=== PATIENT | male | born 1935 | race Caucasian/White ===

== ENCOUNTER → 2016-04-05 | Outpatient (CLI) | payer BC ==
[~2016-04-05] MED LIST: ACET-1311 PO; AGG PO; ASPI325T39 PO; BIMA0.01 OPB; CALC-279 PO; DOCU1TAB6 PO; FERR325T18 PO; FRRG PO; MIRT15TA2 PO; MULTTAB58 PO; PANT40TA PO; POLY335019 PO; TRAM-10 PO
--- NOTE | 2016-04-05 08:14 | DIAGNOSTIC IMAGING REPORT ---
DOUBLE CONTRAST BARIUM ESOPHAGRAM CLINICAL HISTORY: Cough. COMPARISON STUDY: Video swallow study dated 10/07/2015. TECHNIQUE: A standard air contrast barium esophagram is performed. Multiple spot images of the esophagus are acquired both upright and prone. FINDINGS: The patient swallowed barium without difficulty. Barium pill assessment was deferred. A large Zenker's diverticulum is identified. The mucosal pattern is normal. There is no evidence of intrinsic or extrinsic mass lesion. Trace aspiration was seen. There is moderate esophageal dysmotility, greatest in the mid to distal third. The gastroesophageal junction distended normally. No gastroesophageal reflux could be elicited by having the patient perform the Valsalva maneuver. Fluoroscopy time: 0.9 minutes. Fluoroscopic images: 23 IMPRESSION: 1. Esophageal dysmotility. 2. A large Zenker's diverticulum is noted. 3. Trace aspiration was identified. Electronically signed by: Jagdeep Marlow M.D. 04/05/2016 8:12 AM Dictated Date/Time: 04/05/2016 8:09 AM
== END | disposition home or self-care (01) ==
LOC: C.RAD 07:11
DX: R05 Cough (principal); K22.4 Dyskinesia of esophagus; K22.5 Diverticulum of esophagus, acquired

== ENCOUNTER → 2016-06-19 | Outpatient (CLI) | payer BC ==
[2016-06-19 15:49] LABS: BASO % 0.3 %; BASO ABS # 0.02 K/uL (0-0.2); COMPLETE YES; EOS % 2.1 %; HEMATOCRIT 45.2 % (42-52); IG% 0.3 %; LYMPH % 16.4 %; LYMPH ABS # 1.02 K/uL (1.2-3.4); MEAN CELL VOLUME 90.6 fL (80-100); MEAN CORPUSCULAR HEMOGLOBIN 30.3 pg (25-34); MEAN CORPUSCULAR HGB CONC 33.4 g/dl (32-36); MEAN PLATELET VOLUME 10.5 fL (7.4-10.4); MONO % 12.4 %; NEUT % 68.5 %; PLATELET COUNT 143 K/uL (130-400); RED BLOOD COUNT 4.99 M/uL (4.7-6.1); WHITE BLOOD COUNT 6.23 K/uL (4.8-10.8)
[2016-06-19 15:59] LABS: ALT/SGPT 22 U/L (12-78); AST/SGOT 11 U/L (15-37); BLOOD UREA NITROGEN 20 mg/dl (7-18); BUN/CREATININE RATIO 18.3 (10-20); CALCIUM 8.7 mg/dl (8.5-10.1); CARBON DIOXIDE 26 mmol/L (21-32); CHLORIDE 111 mmol/L (98-107); GLUCOSE 90 mg/dl (70-99); POTASSIUM 4.4 mmol/L (3.5-5.1); SODIUM 143 mmol/L (136-145)
[2016-06-19 16:00] LABS: BLOOD UREA NITROGEN 21 mg/dl (7-18)
[2016-06-19 16:10] LABS: ALB/GLOB RATIO 1.4 (0.9-2); ALKALINE PHOSPHATASE 98 U/L (45-117)
== END | disposition home or self-care (01) ==
LOC: C.LAB1850 13:56
PROVIDERS: ATTEND Psychiatry & Neurology Neurology
DX: R26.0 Ataxic gait (principal); R41.3 Other amnesia; I67.82 Cerebral ischemia; E53.8 Deficiency of other specified B group vitamins

== ENCOUNTER 2016-06-20 15:45 | Inpatient (IN) | payer BC, OTHER ==
[~2016-06-20] VITALS: Ht 180.3 cm; Wt 101.0 kg
[~2016-06-20 15:45] MED LIST changes: -ACET-1311 PO; -ASPI325T39 PO; -FERR325T18 PO; -FRRG PO; -PANT40TA PO; -TRAM-10 PO
[2016-06-20 16:20] LABS: BASO % 0.3 %; BASO ABS # 0.02 K/uL (0-0.2); COMPLETE YES; EOS % 2.2 %; HEMATOCRIT 41.8 % (42-52); IG% 0.5 %; LYMPH % 14.6 %; LYMPH ABS # 0.91 K/uL (1.2-3.4); MEAN CELL VOLUME 92.5 fL (80-100); MEAN CORPUSCULAR HEMOGLOBIN 31.6 pg (25-34); MEAN CORPUSCULAR HGB CONC 34.2 g/dl (32-36); MEAN PLATELET VOLUME 10.2 fL (7.4-10.4); MONO % 10.3 %; NEUT % 72.1 %; PLATELET COUNT 127 K/uL (130-400); RED BLOOD COUNT 4.52 M/uL (4.7-6.1); WHITE BLOOD COUNT 6.24 K/uL (4.8-10.8)
[2016-06-20 16:30] LABS: PARTIAL THROMBOPLASTIN RATIO 1.1
--- NOTE | 2016-06-20 16:32 | DIAGNOSTIC IMAGING REPORT ---
CT SCAN OF THE BRAIN WITHOUT IV CONTRAST CLINICAL HISTORY: Fall. COMPARISON STUDY: CT of the brain dated 10/04/2015. TECHNIQUE: Unenhanced axial CT scan of the brain is performed from the vertex to the skull base. CT DOSE: 691.05 mGy.cm FINDINGS: Brain parenchyma: There are age-related involutional changes noting mild subcortical and periventricular microangiopathic change. There is no hemorrhage, mass effect, or evidence of acute territorial ischemia by CT criteria. A small arachnoid cyst is again seen in the left anterior temporal pole measuring up to 2.8 cm. Lundberg-white matter is preserved. No extra-axial fluid collection is seen. Ventricles, sulci, cisterns: Prominent secondary to involutional change. Megacisterna magna is incidentally noted. Intracranial vasculature: There is atherosclerotic calcification of the cavernous carotid and vertebral arteries. Calvarium: The skeletal structures are osteopenic. There is no depressed calvarial fracture. Sinuses and mastoids: Findings suggest previous paranasal sinus surgery. Trace mucosal thickening is seen within the right maxillary antrum and the ethmoid cavities. The remaining visualized paranasal sinuses are clear. The mastoid air cells are well pneumatized. Orbits: The bony orbits are grossly intact. IMPRESSION: There is no hemorrhage, mass effect, or evidence of acute territorial ischemia by CT criteria. Electronically signed by: Jagdeep Marlow M.D. 06/20/2016 4:31 PM Dictated Date/Time: 06/20/2016 4:24 PM
[2016-06-20 16:36] LABS: BLOOD UREA NITROGEN 28 mg/dl (7-18); BUN/CREATININE RATIO 21.6 (10-20); CALCIUM 8.5 mg/dl (8.5-10.1); CARBON DIOXIDE 27 mmol/L (21-32); CHLORIDE 111 mmol/L (98-107); GLUCOSE 105 mg/dl (70-99); POTASSIUM 4.3 mmol/L (3.5-5.1); SODIUM 144 mmol/L (136-145)
--- NOTE | 2016-06-20 16:50 | DIAGNOSTIC IMAGING REPORT ---
SINGLE VIEW PELVIS; 2 VIEWS RIGHT HIP; 2 VIEWS RIGHT FEMUR CLINICAL HISTORY: Fall with right hip pain. FINDINGS: An AP view of the pelvis with AP and frog-leg views of the right hip as well as AP and lateral views of the right femur are correlated with pelvic radiograph dated 07/24/2007. The skeletal structures are osteopenic. No fracture is identified in the bony pelvis or the visualized left hip. A right hip arthroplasty is in near-anatomic alignment. There is a spiral fracture through the proximal shaft of the right femur around the arthroplasty stem. There is approximately 6 mm cortical offset at the distal margin of the fracture. The distal femoral shaft is intact. The right knee is grossly maintained noting arthritic change. Mild soft tissue edema is present in the upper thigh. Chronic heterotopic bone formation is noted around the proximal aspect of the arthroplasty. Sclerotic change is seen in the sacroiliac joints. Lumbosacral spondylosis is partially imaged. There is a nonobstructed abdominal bowel gas pattern noting significant colonic fecal retention. IMPRESSION: 1. There is a minimally distracted spiral fracture through the proximal shaft of the right femur around the stem of the right hip arthroplasty. 2. No additional fracture is seen. The bony pelvis appears intact, as does the distal femur. Electronically signed by: Jagdeep Marlow M.D. 06/20/2016 4:49 PM Dictated Date/Time: 06/20/2016 4:45 PM
--- NOTE | 2016-06-20 17:03 | DIAGNOSTIC IMAGING REPORT ---
SINGLE VIEW CHEST CLINICAL HISTORY: Fall. Right femoral fracture. FINDINGS: 2 AP semierect chest radiographs are compared to study dated 02/04/2016 and correlated with chest CT dated 12/19/2012. The examination is degraded by patient rotation. The heart is enlarged and there is atherosclerotic calcification of the thoracic aorta. The pulmonary vasculature is noncongested. Emphysema and chronic interstitial thickening are similar to previous. A calcified granuloma is noted at the left lung base. Linear atelectasis versus scarring is present in left lower lung. No airspace consolidation, large pleural effusion, or pneumothorax is seen. The skeletal structures are osteopenic. Degenerative change is noted in the shoulders and thoracic spine. There are healed bilateral rib fractures. IMPRESSION: Cardiomegaly and emphysema with no acute cardiopulmonary abnormality. Electronically signed by: Jagdeep Marlow M.D. 06/20/2016 5:02 PM Dictated Date/Time: 06/20/2016 5:00 PM
[2016-06-20] MEDS ORDERED: MoRPHine SULFATE 4 MG/ML 1 ML CARP\\VIAL IV STA (17:36)
[2016-06-20] MEDS ORDERED: ONDANSETRON INJ 2 MG/ML 2 ML VIAL IV STA (17:36)
--- NOTE | 2016-06-20 17:42 | EMERGENCY ROOM VISIT NOTE ---
History Report prepared by Mat: Elham Deluca Under the Supervision of: Dr. Hood Fields M.D. First contact with patient: 15:53 Chief Complaint: FALL Stated Complaint: FALL History of Present Illness The patient is a 80 year old male who presents to the Emergency Room with complaints of persistent right hip pain after falling today [employer]. His friend who witnessed the fall states that the patient was reaching up to put away his towel when he slipped on water and fell. He denies losing consciousness. He has had a right hip replacement in the past. He is having trouble lifting his right leg because of the pain with movement. He denies any vomiting, chest pain, neck pain, back pain, or SOB. He denies being dizzy before falling. He has had a TIA in the past. He is currently on Aggrenox. Source of History: patient Onset: CONTRACTING EXECUTIVE Position: other (right hip) Symptom Intensity: moderate Quality: sharp Timing: other (persistent) Modifying Factors (Worsening): movement Associated Symptoms: No LOC, No SOB, No back pain, No chest pain, No neck pain, No vomiting Note: Pt denies being dizzy. Review of Systems See HPI for pertinent positives & negatives. A total of 10 systems reviewed and were otherwise negative. 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 (4) Hypertension (5) Pneumonia (6) TRANS CEREB ISCHEMIA NOS Surgical Problems: (1) H/O sinus surgery Family History Diabetes mellitus FH: cancer FH: heart disease Social History Smoking Status: Never Smoker Alcohol Use: occasionally Drug Use: none Marital Status: Housing Status: lives with family Occupation Status: employed Current/Historical Medications Scheduled Bimatoprost (Lumigan), 1 DROP OPB HS Calcium Citrate-Vitamin D (Calcium Citrate + D), 1 TAB PO QPM Dipyridamole/Aspirin (Aggrenox 25-200 mg), 1 CAP PO BID Multiple Vitamin (Multivitamin), 1 TAB PO QAM Allergies Coded Allergies: No Known Allergies (Verified , 06/20/16) Physical Exam Vital Signs Date Time Temp Pulse Resp B/P Pulse Ox O2 Delivery O2 Flow Rate FiO2 06/20/16 17:37 56 18 154/86 98 Room Air 06/20/16 16:07 59 06/20/16 15:50 36.7 56 18 147/87 98 Room Air Physical Exam Constitutional: Vital signs reviewed. Eyes: Pupils are equal round reactive to light. Conjunctiva are noninjected. ENT: Pharynx is clear without erythema or exudate. Mucous membranes are moist. Neck supple without meningeal signs. No midline tenderness to the cervical spine. Respiratory: Clear to auscultation bilaterally. Breath sounds are equal bilaterally. Cardiovascular: Regular rate and rhythm. No rubs or gallops. GI: Soft, nondistended and nontender. Bowel sounds are present. Musculoskeletal: No peripheral edema. Tenderness to the right hip without shortening. Distal pulses intact. Integumentary: No cyanosis. Small hematoma to the right occiput. Neurological: The patient is awake and alert. No focal deficits. Psychiatric: Normal affect. Medical Decision & Procedures ER Provider Diagnostic Interpretation: X-ray results as stated below per interpretation by me and the radiologist. Radiology results as stated below per my review and the radiologist's interpretation: SINGLE VIEW PELVIS; 2 VIEWS RIGHT HIP; 2 VIEWS RIGHT FEMUR CLINICAL HISTORY: Fall with right hip pain. FINDINGS: An AP view of the pelvis with AP and frog-leg views of the right hip as well as AP and lateral views of the right femur are correlated with pelvic radiograph dated 07/24/2007. The skeletal structures are osteopenic. No fracture is identified in the bony pelvis or the visualized left hip. A right hip arthroplasty is in near-anatomic alignment. There is a spiral fracture through the proximal shaft of the right femur around the arthroplasty stem. There is approximately 6 mm cortical offset at the distal margin of the fracture. The distal femoral shaft is intact. The right knee is grossly maintained noting arthritic change. Mild soft tissue edema is present in the upper thigh. Chronic heterotopic bone formation is noted around the proximal aspect of the arthroplasty. Sclerotic change is seen in the sacroiliac joints. Lumbosacral spondylosis is partially imaged. There is a nonobstructed abdominal bowel gas pattern noting significant colonic fecal retention. IMPRESSION: 1. There is a minimally distracted spiral fracture through the proximal shaft of the right femur around the stem of the right hip arthroplasty. 2. No additional fracture is seen. The bony pelvis appears intact, as does the distal femur. Electronically signed by: Jagdeep Marlow M.D. 06/20/2016 4:49 PM Dictated Date/Time: 06/20/2016 4:45 PM SINGLE VIEW CHEST CLINICAL HISTORY: Fall. Right femoral fracture. FINDINGS: 2 AP semierect chest radiographs are compared to study dated 02/04/2016 and correlated with chest CT dated 12/19/2012. The examination is degraded by patient rotation. The heart is enlarged and there is atherosclerotic calcification of the thoracic aorta. The pulmonary vasculature is noncongested. Emphysema and chronic interstitial thickening are similar to previous. A calcified granuloma is noted at the left lung base. Linear atelectasis versus scarring is present in left lower lung. No airspace consolidation, large pleural effusion, or pneumothorax is seen. The skeletal structures are osteopenic. Degenerative change is noted in the shoulders and thoracic spine. There are healed bilateral rib fractures. IMPRESSION: Cardiomegaly and emphysema with no acute cardiopulmonary abnormality. Electronically signed by: Jagdeep Marlow M.D. 06/20/2016 5:02 PM Dictated Date/Time: 06/20/2016 5:00 PM SINGLE VIEW PELVIS; 2 VIEWS RIGHT HIP; 2 VIEWS RIGHT FEMUR CLINICAL HISTORY: Fall with right hip pain. FINDINGS: An AP view of the pelvis with AP and frog-leg views of the right hip as well as AP and lateral views of the right femur are correlated with pelvic radiograph dated 07/24/2007. The skeletal structures are osteopenic. No fracture is identified in the bony pelvis or the visualized left hip. A right hip arthroplasty is in near-anatomic alignment. There is a spiral fracture through the proximal shaft of the right femur around the arthroplasty stem. There is approximately 6 mm cortical offset at the distal margin of the fracture. The distal femoral shaft is intact. The right knee is grossly maintained noting arthritic change. Mild soft tissue edema is present in the upper thigh. Chronic heterotopic bone formation is noted around the proximal aspect of the arthroplasty. Sclerotic change is seen in the sacroiliac joints. Lumbosacral spondylosis is partially imaged. There is a nonobstructed abdominal bowel gas pattern noting significant colonic fecal retention. IMPRESSION: 1. There is a minimally distracted spiral fracture through the proximal shaft of the right femur around the stem of the right hip arthroplasty. 2. No additional fracture is seen. The bony pelvis appears intact, as does the distal femur. Electronically signed by: Jagdeep Marlow M.D. 06/20/2016 4:49 PM Dictated Date/Time: 06/20/2016 4:[address] SCAN OF THE BRAIN WITHOUT IV CONTRAST CLINICAL HISTORY: Fall. COMPARISON STUDY: CT of the brain dated 10/04/2015. TECHNIQUE: Unenhanced axial CT scan of the brain is performed from the vertex to the skull base. CT DOSE: 691.05 mGy.cm FINDINGS: Brain parenchyma: There are age-related involutional changes noting mild subcortical and periventricular microangiopathic change. There is no hemorrhage, mass effect, or evidence of acute territorial ischemia by CT criteria. A small arachnoid cyst is again seen in the left anterior temporal pole measuring up to 2.8 cm. Lundberg-white matter is preserved. No extra-axial fluid collection is seen. Ventricles, sulci, cisterns: Prominent secondary to involutional change. Megacisterna magna is incidentally noted. Intracranial vasculature: There is atherosclerotic calcification of the cavernous carotid and vertebral arteries. Calvarium: The skeletal structures are osteopenic. There is no depressed calvarial fracture. Sinuses and mastoids: Findings suggest previous paranasal sinus surgery. Trace mucosal thickening is seen within the right maxillary antrum and the ethmoid cavities. The remaining visualized paranasal sinuses are clear. The mastoid air cells are well pneumatized. Orbits: The bony orbits are grossly intact. IMPRESSION: There is no hemorrhage, mass effect, or evidence of acute territorial ischemia by CT criteria. Electronically signed by: Jagdeep Marlow M.D. 06/20/2016 4:31 PM Dictated Date/Time: 06/20/2016 4:24 PM Laboratory Results 06/20/16 16:10 Red Blood Count 4.52, Mean Corpuscular Volume 92.5, Mean Corpuscular Hemoglobin 31.6, Mean Corpuscular Hemoglobin Concent 34.2, Mean Platelet Volume 10.2, Neutrophils (%) (Auto) 72.1, Lymphocytes (%) (Auto) 14.6, Monocytes (%) (Auto) 10.3, Eosinophils (%) (Auto) 2.2, Basophils (%) (Auto) 0.3, Neutrophils # (Auto ) 4.50, Lymphocytes # (Auto) 0.91, Monocytes # (Auto) 0.64, Eosinophils # (Auto ) 0.14, Basophils # (Auto) 0.02 06/20/16 16:10 Test 06/20/16 16:10 White Blood Count 6.24 K/uL (4.8-10.8) Red Blood Count 4.52 M/uL (4.7-6.1) Hemoglobin 14.3 g/dL (14.0-18.0) Hematocrit 41.8 % (42-52) Mean Corpuscular Volume 92.5 fL (80-100) Mean Corpuscular Hemoglobin 31.6 pg (25-34) Mean Corpuscular Hemoglobin Concent 34.2 g/dl (32-36) Platelet Count 127 K/uL (130-400) Mean Platelet Volume 10.2 fL (7.4-10.4) Neutrophils (%) (Auto) 72.1 % Lymphocytes (%) (Auto) 14.6 % Monocytes (%) (Auto) 10.3 % Eosinophils (%) (Auto) 2.2 % Basophils (%) (Auto) 0.3 % Neutrophils # (Auto) 4.50 K/uL (1.4-6.5) Lymphocytes # (Auto) 0.91 K/uL (1.2-3.4) Monocytes # (Auto) 0.64 K/uL (0.11-0.59) Eosinophils # (Auto) 0.14 K/uL (0-0.5) Basophils # (Auto) 0.02 K/uL (0-0.2) RDW Standard Deviation 45.8 fL (36.4-46.3) RDW Coefficient of Variation 13.5 % (11.5-14.5) Immature Granulocyte % (Auto) 0.5 % Immature Granulocyte # (Auto) 0.03 K/uL (0.00-0.02) Prothrombin Time 11.0 SECONDS (9.0-12.0) Prothromb Time International Ratio 1.0 (0.9-1.1) Activated Partial Thromboplast Time 28.7 SECONDS (21.0-31.0) Partial Thromboplastin Ratio 1.1 Anion Gap 6.0 mmol/L (3-11) Est Creatinine Clear Calc Drug Dose 53.9 ml/min Estimated GFR () 59.3 Estimated GFR (Non- 51.2 BUN/Creatinine Ratio 21.6 (10-20) Calcium Level 8.5 mg/dl (8.5-10.1) Troponin I < 0.015 ng/ml (0-0.045) Laboratory results as reviewed by me. ECG Indication: other (fall) Rate (beats per minute): 56 Rhythm: sinus bradycardia Findings: no acute ischemic change, no ectopy Comparison ECG Date: 08-Oct-2015 Change: no significant change ED Course 1555: The patient was evaluated in room B7. A complete history and physical exam was performed. 1708: I reevaluated the patient. I updated him on the results. He continues to decline pain medications. His friend who witnessed the fall has come and provided some more information regarding the fall. He states that the patient was reaching up to put away his towel when he slipped on water and fell. He reports that Dr. Topete is his orthopedic doctor. 1717: I discussed the patient's case with Dr. Topete, Orthopedics. He requested that the medical team hospitalize the patient and he will consult. 1720: I reevaluated the patient. I discussed the results and treatment plan with him. He verbalized understanding and agreement. The patient will be evaluated for further management. 1732: I discussed the patient's case with Dr. Bass, [facility] [place]. He will be evaluated for further management. Medical Decision This is an 80-year-old male who presents status post fall with head injury and hip pain. Differential diagnosis includes contusion, concussion, intracranial hemorrhage, skull fracture, hip fracture, pelvic fracture. I did perform a limited focused review of portions of the patient's old chart on the electronic medical record. The patient had blood work yesterday which was unremarkable. I did evaluate the patient as noted above. The patient presents with a hip injury and head injury after a fall. IV access was established. The patient was placed on a continuous alarm security or surveillance monitor. I did order and personally review the patient's 12-lead EKG and x-rays as described above. He does have a spiral fracture of the proximal femur near the prosthesis. He is distally neurovascularly intact. I did order and review the patient's blood work as noted in the electronic medical record. I did order a CT of the head. I did review the images myself as well as the radiology report as described above. There is no evidence of intracranial hemorrhage. I did discuss the test results with the patient. His friend is now at the bedside who states he saw the incident occurred and it was a mechanical fall. He slipped on water after taking a shower. The patient initially didn't want any pain medicine but later stated he would. He was treated with IV morphine and Zofran. I did discuss case with Dr. Topete who he identified as his orthopedic physician. Dr. Topete requested that the medical service hospital as the patient and he will see the patient as a consult. I did discuss the case with Dr. Bass who will hospitalize the patient. Consults Time Called: 171 Consulting Physician: Dr. Topete, Orthopedics Returned Call: [phone] I discussed the patient's case with him. He requested that the medical team hospitalize the patient and he will consult. Additional Consults: Time Called: 171 Consulted Physician: Dr. Bass, [facility] [place] Returned Call: [phone] Additional Comments: I discussed the patient's case with her. He will be evaluated for further management. Impression Primary Impression: Fracture of proximal end of right femur Additional Impressions: Acute head injury Fall Scribe Attestation The scribe's documentation has been prepared under my direct and personally reviewed by me in its entirety. I confirm that the note above accurately reflects all work, treatment, procedures, and medical decision making performed by me. Departure Information Dispostion Being Evaluated By Hospitalist Referrals ,Hank Vyas M.D. (PCP) Patient Instructions [facility] Problem Qualifiers Primary Impression: Fracture of proximal end of right femur Encounter type: initial encounter Fracture type: closed Qualified Codes: S72.001A - Fracture of unspecified part of neck of right femur, initial encounter for closed fracture Additional Impressions: Acute head injury Encounter type: initial encounter Qualified Codes: S09.90XA - Unspecified injury of head, initial encounter Fall Encounter type: initial encounter Qualified Codes: W19.XXXA - Unspecified fall, initial encounter
[2016-06-20] MEDS ORDERED: SODIUM CHLORIDE 0.45% 1000ML 1,000 ML IV SCH (19:51)
[2016-06-20] MEDS ORDERED: MoRPHine SULFATE 4 MG/ML 1 ML CARP\\VIAL ONE (20:06)
--- NOTE | 2016-06-20 20:53 | DIAGNOSTIC IMAGING REPORT ---
CT SCAN OF THE CERVICAL SPINE CLINICAL HISTORY: Fall. COMPARISON STUDY: CT scan of the cervical spine dated 04/05/2015. TECHNIQUE: CT scan of the cervical spine is performed from the skull base to the upper thoracic spine. Images are reviewed in the axial, sagittal, and coronal planes. IV contrast was not administered for this examination. CT DOSE: 262.67 mGy.cm FINDINGS: Skeletal structures: The skeletal structures are osteopenic. There is no evidence of fracture or subluxation involving the cervical spine. There are postoperative changes from laminectomy at C4. Vertebral body height is maintained. There is minimal retrolisthesis at C3-C4. Alignment is otherwise preserved. Hyperlordosis is noted. The odontoid process and lateral masses are intact. The atlantoaxial articulation is preserved noting productive degenerative change. The spinous processes appear intact. Large flowing anterior osteophytes are seen from C5 through T1. There is moderate multilevel cervical spondylosis. Uncovertebral and facet arthropathy contribute to neural foraminal narrowing at most levels. Intervertebral discs: There is moderate to advanced degenerative disc space narrowing at C6-C7 and C7-T1. Mild disc space narrowing is seen at the remaining cervical levels. Central canal: Posterior disc osteophyte complexes are present at all levels and likely contribute to multilevel acquired compromise of the central canal. Soft tissues: The prevertebral and paraspinous soft tissues are within normal limits. Calvarium: The visualized calvarium at the skull base appears intact. Brain parenchyma: Partially visualized brain parenchyma the skull base is within normal limits noting age-related involutional change. Sinuses and mastoids: The visualized paranasal sinuses are clear. The mastoid air cells are well pneumatized. Lung apices: Clear as visualized. IMPRESSION: 1. There is no evidence of fracture or subluxation involving the cervical spine. 2. Osteopenia noting postoperative and spondylotic changes as above. Electronically signed by: Jagdeep Marlow M.D. 06/20/2016 8:51 PM Dictated Date/Time: 06/20/2016 8:48 PM
[2016-06-20] MEDS: CALCIUM 600MG + VIT D 400 IU TAB PO SCH (21:00)
[2016-06-20 23:12] VITALS: BP 129/78; PULSE 58; TEMP 37.1; O2SAT 96
[2016-06-20 23:20] VITALS: BP 129/78; PULSE 59; TEMP 37.1; O2SAT 96; Ht 180.3 cm; Wt 101.0 kg
[2016-06-20] MEDS: MoRPHine SULFATE 4 MG/ML 1 ML CARP\\VIAL IV PRN (23:22)
[2016-06-20] MEDS ORDERED: ONDANSETRON INJ 2 MG/ML 2 ML VIAL IV PRN (23:30)
--- NOTE | 2016-06-20 23:34 | History and Physical ---
History & Physical Date & Time of Service: Jun 20, 2016 at 23:01 Chief Complaint: FALL Primary Care Physician: Hank Porter M.D. History of Present Illness Source: patient, spouse This patient is an 80-year-old male with a history of remote TIA, BPH, Zenker's diverticulum with repair, cervical spine disease status post laminectomy, stage I bladder cancer, and a more recent workup for vascular dementia as well as a previous right total hip arthroplasty, who presents to the ER after a fall in the locker room at the [facility]. He had just finished swimming and was with a friend who was able to give report in the ER to the ER physician that the patient was reaching for his towel and turned on a planted right foot and then proceeded to fall backwards and hit his head on the tile floor. He did sustain a loss of consciousness and a minor laceration to the right side of his scalp as well as a spiral periprosthetic fracture of the right proximal femur. His biggest complaint is of right hip pain. He denies headache or neck pain. CT of the head was negative for acute findings. He does recall just before the fall and after the fall. He did not have any chest pain or heart palpitations then or now. He has no history of cardiac issues. The friend that witnessed the fall stated that it was clearly a mechanical fall. He is being admitted for orthopedic evaluation and repair. Patient reports he has never had any problems with this heart or lungs. He is clearly able to go up and down stairs without chest pain or shortness of breath as well as exercise on a regular basis. He had an echocardiogram less than one year ago which only showed grade 1 diastolic dysfunction and LV EF of 60%. Past Medical/Surgical History Past Medical history: History of TIA BPH status post TURP Zenker's diverticulum with repair Cervical spine disease status post laminectomy at C3 C4 C5 History of Stage I bladder cancer Recent workup for vascular dementia Past Surgical history: Sinus surgery Right total hip arthroplasty Cystoscopy with bladder polyp removal Zenker's diverticulum repair Laminectomy at C3 C4 C5 TURP Family History Diabetes mellitus FH: cancer FH: heart disease Noncontributory due to advanced age Social History Smoking Status: Never Smoker Alcohol Use: occasionally Drug Use: none Marital Status: Housing status: lives with family Occupational Status: retired Immunizations History of Influenza Vaccine: No History of Tetanus Vaccine?: Unknown History of Pneumococcal: Unknown History of Hepatitis B Vaccine: Unknown Multi-Drug Resistant Organisms History of MDRO: No Allergies Coded Allergies: No Known Allergies (Verified , 06/20/16) Home Medications Scheduled Bimatoprost (Lumigan), 1 DROP OPB HS Calcium Citrate-Vitamin D (Calcium Citrate + D), 1 TAB PO QPM Dipyridamole/Aspirin (Aggrenox 25-200 mg), 1 CAP PO BID Multiple Vitamin (Multivitamin), 1 TAB PO QAM Review of Systems Constitutional: No chills, No fever Eyes: No problem reported ENT: + hearing loss (wears hearing aids), + trouble swallowing (starting have some coughing with swallowing again and may be having a recurrence of his Zenker 's diverticulum) Respiratory: No dyspnea on exertion, No shortness of breath, No wheezing Cardiovascular: No chest pain, No palpitations Abdomen: No GI bleeding, No nausea, No pain, No vomiting Musculoskeletal: + joint pain (right hip) Genitourinary - Male: No problem reported Neurologic: + memory loss (as per ) Psychiatric: No problem reported Endocrine: No problem reported Hematologic / Lymphatic: No problem reported Integumentary: No problem reported Allergic / Immunologic: No problem reported Physical Exam Vital Signs Date Time Temp Pulse Resp B/P Pulse Ox O2 Delivery O2 Flow Rate FiO2 06/20/16 22:57 58 20 118/70 95 Room Air 06/20/16 21:35 63 18 113/71 95 Room Air 06/20/16 20:07 65 19 129/72 93 Room Air 06/20/16 17:37 56 18 154/86 98 Room Air 06/20/16 16:07 59 06/20/16 15:50 36.7 56 18 147/87 98 Room Air General Appearance: WD/WN, no apparent distress Head: normocephalic, + evidence of trama (right posterior parietal region of scalp with 0.75 cm superficial laceration that is no longer actively bleeding, no hematoma) Eyes: normal inspection, PERRL, EOMI, sclerae normal ENT: normal ENT inspection, TMs normal, pharynx normal, + pertinent finding ( hard of hearing) Neck: supple (and no tenderness of the cervical spine, full range of motion), no adenopathy, thyroid normal, no JVD, no carotid bruits, trachea midline Respiratory/Chest: lungs clear, normal breath sounds, no respiratory distress, no accessory muscle use Cardiovascular: regular rate, rhythm, no edema, no gallop, no murmur, normal peripheral pulses Abdomen/GI: normal bowel sounds, non tender, soft, no organomegaly, no pulsatile mass Genitourinary - Male: normal male genitalia (with Vaughn catheter in place draining clear yellow urine), no genital lesions Extremities/Musculoskelatal: no calf tenderness, + pertinent finding (positive tenderness to palpation over right proximal thigh, range of motion of right hip not tested) Neurologic/Psych: alert, normal mood/affect, + pertinent finding (alert awake and oriented but tends to repeat the same stories throughout the interview) Skin: normal color, warm/dry, no rash Lymphatic: no adenopathy Diagnostics Laboratory Results Results Past 24 Hours Test 06/20/16 16:10 Range/Units White Blood Count 6.24 4.8-10.8 K/uL Red Blood Count 4.52 4.7-6.1 M/uL Hemoglobin 14.3 14.0-18.0 g/dL Hematocrit 41.8 42-52 % Mean Corpuscular Volume 92.5 80-100 fL Mean Corpuscular Hemoglobin 31.6 25-34 pg Mean Corpuscular Hemoglobin Concent 34.2 32-36 g/dl Platelet Count 127 130-400 K/uL Mean Platelet Volume 10.2 7.4-10.4 fL Neutrophils (%) (Auto) 72.1 % Lymphocytes (%) (Auto) 14.6 % Monocytes (%) (Auto) 10.3 % Eosinophils (%) (Auto) 2.2 % Basophils (%) (Auto) 0.3 % Neutrophils # (Auto) 4.50 1.4-6.5 K/uL Lymphocytes # (Auto) 0.91 1.2-3.4 K/uL Monocytes # (Auto) 0.64 0.11-0.59 K/uL Eosinophils # (Auto) 0.14 0-0.5 K/uL Basophils # (Auto) 0.02 0-0.2 K/uL RDW Standard Deviation 45.8 36.4-46.3 fL RDW Coefficient of Variation 13.5 11.5-14.5 % Immature Granulocyte % (Auto) 0.5 % Immature Granulocyte # (Auto) 0.03 0.00-0.02 K/uL Prothrombin Time 11.0 9.0-12.0 SECONDS Prothromb Time International Ratio 1.0 0.9-1.1 Activated Partial Thromboplast Time 28.7 21.0-31.0 SECONDS Partial Thromboplastin Ratio 1.1 Sodium Level 144 136-145 mmol/L Potassium Level 4.3 3.5-5.1 mmol/L Chloride Level 111 98-107 mmol/L Carbon Dioxide Level 27 21-32 mmol/L Anion Gap 6.0 3-11 mmol/L Blood Urea Nitrogen 28 7-18 mg/dl Creatinine 1.30 0.60-1.40 mg/dl Est Creatinine Clear Calc Drug Dose 53.9 ml/min Estimated GFR () 59.3 Estimated GFR (Non- 51.2 BUN/Creatinine Ratio 21.6 10-20 Random Glucose 105 70-99 mg/dl Calcium Level 8.5 8.5-10.1 mg/dl Troponin I < 0.015 0-0.045 ng/ml Diagnostic Radiology X-rays of the hips, pelvis, and femur all personally reviewed and show periprosthetic spiral fracture of the right proximal femur. CT of the head with no acute changes CT of the neck with significant degenerative disease but no fractures Chest x-ray with cardiomegaly and atelectasis at left base, findings of emphysema EKG Sinus bradycardia, rate 56, poor R-wave progression through the precordial leads which is unchanged from previous Impression Assessment and Plan This patient is an 80-year-old male with a history of remote TIA, BPH, Zenker's diverticulum with repair, cervical spine disease status post laminectomy, stage I bladder cancer, and a more recent workup for vascular dementia as well as a previous right total hip arthroplasty, who presents to the ER after a fall in the locker room at the [facility] which resulted in a proximal right femur periprosthetic spiral fracture. He also sustained head trauma with a loss of consciousness but with no acute changes on CT of the head and no signs of concussion on admission. Right periprosthetic proximal spiral femur fracture/mechanical fall/closed head injury/loss of consciousness-patient with need for urgent surgical repair. He is easily able to achieve at least 4 metastases prior to this injury and had a fairly normal echocardiogram 10 months ago with no acute changes on his EKG. There is nothing from a cardiovascular standpoint that should preclude him from undergoing this intermediate risk orthopedic surgery to repair his fracture. It should be noted that his reports some combativeness post anesthesia from his previous surgery a few years ago. CT of the head and neck with no acute changes. -Morphine when necessary pain and Zofran when necessary nausea -Continue IV fluids and make nothing by mouth after midnight in preparation for surgery -Orthopedic surgery consultation for surgical management appreciated -SCDs for DVT prophylaxis for now -Which for developing signs or symptoms of concussion History of TIA-currently undergoing workup for vascular dementia and was scheduled to have a brain MRI as an outpatient later this week. -Hold Aggrenox for surgery and restart when okay with orthopedic surgery postoperatively -We'll need to monitor for any postop delirium in the setting of possible early dementia especially with use of narcotics for pain control History of Zenker's diverticulum and dysphasia-may be recurring as per patient and his -Watch for difficulties with swallowing -Consider speech therapy evaluation History of BPH status post TURP-stable, Vaughn in place at this time DVT prophylaxis: SCDs Disposition full code We'll need PT and OT E Fels and possible rehabilitation placement Level of Care Med/Surg Resuscitation Status FULL RESUSCITATION VTE Prophylaxis VTE Risk Assessment Done? Y/N: Yes Risk Level: Moderate Given or contraindicated: SCD's Additional Copies To Hank Porter M.D.
[2016-06-21] VITALS (9 sets, daily range): BP systolic 117–179; BP diastolic 70–93; PULSE 52–85; TEMP 36.3–37.2; O2SAT 96
[2016-06-21] MEDS: BIMATOPROST 0.01% OP SOLN 2.5 ML BTL OPB SCH ×2 (05:36→21:33)
[2016-06-21 06:54] LABS: HEMATOCRIT 37.9 % (42-52); MEAN CELL VOLUME 92.2 fL (80-100); MEAN CORPUSCULAR HEMOGLOBIN 30.9 pg (25-34); MEAN CORPUSCULAR HGB CONC 33.5 g/dl (32-36); MEAN PLATELET VOLUME 10.4 fL (7.4-10.4); PLATELET COUNT 117 K/uL (130-400); RED BLOOD COUNT 4.11 M/uL (4.7-6.1); WHITE BLOOD COUNT 7.71 K/uL (4.8-10.8)
[2016-06-21] MEDS: MULTIVITAMIN TAB PO SCH (07:02)
[2016-06-21 07:29] LABS: BUN/CREATININE RATIO 23.6 (10-20); CALCIUM 8.3 mg/dl (8.5-10.1); CREATININE 1.1 mg/dl (0.60-1.40); MAGNESIUM 1.8 mg/dl (1.8-2.4); POTASSIUM 4.4 mmol/L (3.5-5.1)
[2016-06-21] MEDS: MoRPHine SULFATE 2 MG/ML CARP IV PRN ×2 (10:44→13:15)
--- NOTE | 2016-06-21 10:55 | ORTHOPEDIC CONSULTATION ---
DATE OF CONSULTATION: 06/20/2016 ORTHOPEDIC CONSULT CHIEF COMPLAINT: Right hip pain. HISTORY OF PRESENT ILLNESS: The patient is an 80-year-old male who has been slowly declining health, who was admitted last evening with a periprosthetic femur fracture. He has had a history of right total hip replacement done at [facility] in 1988. He has done pretty well. I did see him in clinic intermittently over the past 6 years for various orthopedic issues mostly spine and arthritis in his back. There is really not much in the way of hip problems. He was at the [facility] yesterday when he twisted reaching for a towel and slipped on some water. He fell. He hit his head and did lose consciousness. He had acute onset of pain in his right hip and thigh area. He was brought to the Emergency Room where he had a workup. X-rays show a periprosthetic femur fracture. No other injuries. The patient has been admitted by the medicine service. We have been consulted for treatment. He denies any other complaints. He has some very mild neck pain. He denies any significant hip pain before this fall. PAST MEDICAL HISTORY: 1. Transient ischemic attack. 2. BPH. 3. Zenker's diverticulitis. 4. Cervical spine disease. 5. Low back pain/lumbar spondylosis. 6. Vascular dementia. 7. Stage I bladder cancer. The remainder of the past medical history is per the admission H\T\P. OBJECTIVE: VITAL SIGNS: Temperature is 37.2. Vital signs stable. PHYSICAL EXAMINATION: Reveals a pleasant elderly male. He is lying in bed, looks pretty comfortable. Very hard of hearing. His general musculoskeletal exam reveals no palpable tenderness or deformity to his neck. He just complains a little bit of pain. A little stiffness. He has got no palpable tenderness of his back. He has got painless range of motion of both shoulders, wrists, elbows and hands, left hip and leg and lower extremity. Examination of the right lower extremity reveals the leg to be well aligned. There is no deformity. His knee is without effusion. He does have difficulty lifting his leg and pain with lifting his leg. He is neurologically intact. X-RAYS: X-rays of the right femur and hip reveal a right uncemented total hip arthroplasty with a periprosthetic femur fracture. This was a Boswell B fracture either a B1 or B2. It looks like the implant is fairly stable, but difficult to be certain. He has got fairly minimal polyethylene wear. No major osteolysis. He does have some fragmentation and chronic changes of the trochanter. ASSESSMENT: An 80-year-old male status post a right total hip replacement done at [facility] in 1988 with a right Boswell B1 or B2 periprosthetic femur fracture. No other obvious injuries. He had a CT which was negative and a neck CT which was negative for fracture. PLAN: He has been admitted by the medicine service. We will get him medically optimized. We will put him in Preciado's traction for comfort. Begin DVT prophylaxis including thigh-high TEDs and SCDs. We will need to hold his Aggrenox for now. He is going to require surgical fixation. Treatment options are surgical fixation of this fracture if the implant is stable versus a revision total hip replacement. With this elderly gentleman who uses a walker, we are going to really try to minimize surgery if possible and likely fix this if the implant is stable. If it is grossly unstable, we may need to revise the hip replacement and we will be prepared to do that. The risks and benefits of this procedure were explained to the patient in depth to include but not limited to DVT, PE, , infection, neurological injury, vascular injury, bleeding problem, pain, limited range of motion, stiffness, fracture, leg length inequality, nerve palsy, persistent pain, dislocation, etc. The patient understands and desires to proceed. Informed consent was obtained. CHETNA
[2016-06-21] MEDS ORDERED: FENTANYL CITRATE INJ 50 MCG/1 ML 2 ML VIAL ONE ×2 (14:41→19:46)
[2016-06-21] MEDS ORDERED: EpHEDrine SULFATE INJ 50 MG/ML AMP IV PRN (14:45)
[2016-06-21] MEDS ORDERED: ONDANSETRON INJ 2 MG/ML 2 ML VIAL IV PRN ×2 (14:45→19:45)
[2016-06-21] MEDS ORDERED: LABETALOL HCL IV 5 MG/ML 20ML IV PRN (14:45)
[2016-06-21] MEDS ORDERED: ATROPINE SULFATE 0.1 MG/ML 5ML SYR IV PRN (14:45)
[2016-06-21] MEDS ORDERED: MEPERIDINE HCL 25 MG/ML CARP IV PRN (14:45)
[2016-06-21] MEDS ORDERED: HYDROmorphone INJ 1 MG/ML SYR IV PRN (14:45)
[2016-06-21] MEDS ORDERED: BUPIVACAINE/EPINEPHRINE 0.5% MPF 1:200,000 30 ML VIAL ONE (15:05)
[2016-06-21] MEDS ORDERED: BACITRACIN 50000 UNIT VIAL ONE (15:06)
--- NOTE | 2016-06-21 15:16 | Hospitalist Progress Note ---
Hospitalist Progress Note Date of Service Jun 21, 2016. Subjective Pt evaluation today including: conversation w/ patient, conversation w/ family , physical exam, chart review Respiratory: No cough, No dyspnea at rest, No dyspnea on exertion, No hemoptysis, No problem reported, No see HPI, No shortness of breath, No sputum, No wheezing Cardiovascular: No PND, No chest pain, No claudication, No edema, No orthopnea, No palpitations, No problem reported, No see HPI Abdomen: + problem reported (dry throat, has hx of Zenkers) Objective Vital Signs Date Time Temp Pulse Resp B/P Pulse Ox O2 Delivery O2 Flow Rate FiO2 06/21/16 08:16 Room Air 06/21/16 07:50 37.2 52 18 117/70 96 Room Air 06/21/16 04:14 96 Room Air 06/20/16 23:20 37.1 59 17 129/78 96 Room Air 06/20/16 23:12 37.1 58 18 129/78 96 Room Air 06/20/16 22:57 58 20 118/70 95 Room Air 06/20/16 21:35 63 18 113/71 95 Room Air 06/20/16 20:07 65 19 129/72 93 Room Air 06/20/16 17:37 56 18 154/86 98 Room Air 06/20/16 16:07 59 06/20/16 15:50 36.7 56 18 147/87 98 Room Air Physical Exam Eyes: normal inspection, PERRL, EOMI ENT: normal ENT inspection Neck: supple, no adenopathy, thyroid normal Respiratory/Chest: chest non-tender, lungs clear, normal breath sounds Cardiovascular: regular rate, rhythm, no edema, no gallop Abdomen: normal bowel sounds, non tender Extremities: + pertinent finding (Right LE in immobiliser) Laboratory Results Last 24 Hours Test 06/20/16 16:10 06/21/16 06:00 White Blood Count 6.24 K/uL 7.71 K/uL Red Blood Count 4.52 M/uL 4.11 M/uL Hemoglobin 14.3 g/dL 12.7 g/dL Hematocrit 41.8 % 37.9 % Mean Corpuscular Volume 92.5 fL 92.2 fL Mean Corpuscular Hemoglobin 31.6 pg 30.9 pg Mean Corpuscular Hemoglobin Concent 34.2 g/dl 33.5 g/dl Platelet Count 127 K/uL 117 K/uL Mean Platelet Volume 10.2 fL 10.4 fL Neutrophils (%) (Auto) 72.1 % Lymphocytes (%) (Auto) 14.6 % Monocytes (%) (Auto) 10.3 % Eosinophils (%) (Auto) 2.2 % Basophils (%) (Auto) 0.3 % Neutrophils # (Auto) 4.50 K/uL Lymphocytes # (Auto) 0.91 K/uL Monocytes # (Auto) 0.64 K/uL Eosinophils # (Auto) 0.14 K/uL Basophils # (Auto) 0.02 K/uL RDW Standard Deviation 45.8 fL 45.6 fL RDW Coefficient of Variation 13.5 % 13.4 % Immature Granulocyte % (Auto) 0.5 % Immature Granulocyte # (Auto) 0.03 K/uL Prothrombin Time 11.0 SECONDS Prothromb Time International Ratio 1.0 Activated Partial Thromboplast Time 28.7 SECONDS Partial Thromboplastin Ratio 1.1 Sodium Level 144 mmol/L 144 mmol/L Potassium Level 4.3 mmol/L 4.4 mmol/L Chloride Level 111 mmol/L 111 mmol/L Carbon Dioxide Level 27 mmol/L 25 mmol/L Anion Gap 6.0 mmol/L 8.0 mmol/L Blood Urea Nitrogen 28 mg/dl 26 mg/dl Creatinine 1.30 mg/dl 1.10 mg/dl Est Creatinine Clear Calc Drug Dose 53.9 ml/min 63.7 ml/min Estimated GFR () 59.3 72.6 Estimated GFR (Non- 51.2 62.6 BUN/Creatinine Ratio 21.6 23.6 Random Glucose 105 mg/dl 93 mg/dl Calcium Level 8.5 mg/dl 8.3 mg/dl Troponin I < 0.015 ng/ml Magnesium Level 1.8 mg/dl Assessment and Plan This patient is an 80-year-old male with a history of remote TIA, BPH, Zenker's diverticulum with repair, cervical spine disease status post laminectomy, stage I bladder cancer, and a more recent workup for vascular dementia as well as a previous right total hip arthroplasty, who presents to the ER after a fall in the locker room at the [facility] which resulted in a proximal right femur periprosthetic spiral fracture. He also sustained head trauma with a loss of consciousness but with no acute changes on CT of the head and no signs of concussion on admission. Right periprosthetic proximal spiral femur fracture/mechanical fall/closed head injury/loss of consciousness-patient with need for urgent surgical repair. He is easily able to achieve at least 4 metastases prior to this injury and had a fairly normal echocardiogram 10 months ago with no acute changes on his EKG. There is nothing from a cardiovascular standpoint that should preclude him from undergoing this intermediate risk orthopedic surgery to repair his fracture. It should be noted that his reports some combativeness post anesthesia from his previous surgery a few years ago. CT of the head and neck with no acute changes. -Morphine when necessary pain and Zofran when necessary nausea -Continue IV fluids and make nothing by mouth after midnight in preparation for surgery -Orthopedic surgery consultation for surgical management appreciated -SCDs for DVT prophylaxis for now History of TIA-currently undergoing workup for vascular dementia and was scheduled to have a brain MRI as an outpatient later this week. -Hold Aggrenox for surgery and restart when okay with orthopedic surgery postoperatively -We'll need to monitor for any postop delirium in the setting of possible early dementia especially with use of narcotics for pain control History of Zenker's diverticulum and dysphasia-may be recurring as per patient and his -Watch for difficulties with swallowing -Consider speech therapy evaluation History of BPH status post TURP-stable, Vaughn in place at this time DVT prophylaxis: SCDs Disposition full code We'll need PT and OT E Fels and possible rehabilitation placement
[2016-06-21] MEDS ORDERED: NURSING VERBAL MED ORDER ONE ×2 (15:45→20:15)
[2016-06-21] MEDS ORDERED: CEFAZOLIN IV 2,000 MG/60 ML D5W IV ONE (15:50)
[2016-06-21] MEDS ORDERED: GLYCOPYRROLATE INJ 0.2 MG/ML VIAL ONE (18:52)
[2016-06-21] MEDS ORDERED: NEOSTIGMINE METHYLSULFATE 5 MG/5 ML SYR ONE (18:52)
[2016-06-21] MEDS ORDERED: PROPOFOL IV EMULSION 10 MG/ML 20 ML VIAL IV ONE (18:52)
[2016-06-21] MEDS ORDERED: LIDOCAINE HCL 2% 2 ML VIAL (20MG/ML) ONE (18:52)
[2016-06-21] MEDS ORDERED: ROCURONIUM BROMIDE 10 MG/ML 5 ML VIAL ONE (18:52)
[2016-06-21] MEDS ORDERED: PHENYLEPHRINE 100MCG/ML 5ML SYR ONE (18:52)
--- NOTE | 2016-06-21 19:06 | DIAGNOSTIC IMAGING REPORT ---
RIGHT FEMUR 2 VIEWS ROUTINE CLINICAL HISTORY: ORIF periprosthetic Right femur FX Right fracture COMPARISON: None. DISCUSSION: Images utilized for intraoperative localization purposes. Longstem femoral prosthetic with compression wires is present. There is a linear plate traversing the bulk of the femoral shaft with screw fixation. IMPRESSION: Intraoperative right femoral films as described Electronically signed by: Mook Mock M.D. 06/21/2016 7:04 PM Dictated Date/Time: 06/21/2016 7:04 PM
[2016-06-21] MEDS ORDERED: CEFAZOLIN SOD 1 GM VIAL ONE (19:13)
[2016-06-21] MEDS: FENTANYL CITRATE INJ 50 MCG/1 ML 2 ML VIAL IV PRN ×3 (19:30→19:42)
--- NOTE | 2016-06-21 19:35 | [facility] Post Operative Brief Note ---
Immediate Operative Summary Operative Date Jun 21, 2016. Pre-Operative Diagnosis Rabia-prosthetic femur fracture, right Post-Operative Diagnosis Same as preop Procedure(s) Performed open reduction and internal fixation of right rabia-prosthetic femur fracture Surgeon Dr. Topete Cryolite Recovery Operator Surgeon(s) AL Agustin Estimated Blood Loss 400ml Findings Fractured femur around THR Fluids (cc crystalloids) 1700 cc Specimens none per surgeon Anesthesia General Complication(s) None Disposition Recovery Room / PACU
[2016-06-21] MEDS ORDERED: SOD PHOSPHATE/SOD BIPHOSPHATE ENEMA 132 ML BTL PR PRN (19:45)
[2016-06-21] MEDS ORDERED: MAGNESIUM HYDROXIDE SUSP 30 ML UDC PO PRN (19:45)
[2016-06-21] MEDS ORDERED: METOCLOPRAMIDE HCL INJ 5 MG/ML 2 ML VIAL IV PRN (19:45)
[2016-06-21] MEDS ORDERED: BISACODYL 10 MG SUPP PR PRN (19:45)
[2016-06-21] MEDS ORDERED: ALUMINUM/MAGNESIUM/SIMETH (MAALOX MAX) 30 ML UDC PO PRN (19:45)
[2016-06-21] MEDS ORDERED: ZOLPIDEM TARTRATE 5 MG TAB PO PRN (19:45)
--- NOTE | 2016-06-21 19:56 | Anesthesiology Progress Note ---
Anesthesia Post Op Note Date & Time Jun 21, 2016 at 19:57 Vital Signs Pain Intensity: 7.0 Vital Signs Past 12 Hours Date Time Temp Pulse Resp B/P Pulse Ox O2 Delivery O2 Flow Rate FiO2 06/21/16 19:45 154/94 06/21/16 19:44 65 16 06/21/16 19:44 65 16 94 06/21/16 19:40 168/78 06/21/16 19:39 71 17 06/21/16 19:39 71 17 96 06/21/16 19:36 151/101 06/21/16 19:34 69 25 97 06/21/16 19:34 69 25 06/21/16 19:31 135/81 06/21/16 19:29 69 21 06/21/16 19:29 69 21 141/83 100 06/21/16 19:29 36.9 70 16 141/83 100 Mask 10 06/21/16 08:16 Room Air Notes Mental Status: alert / awake / arousable, participated in evaluation Pt Amnestic to Procedure: Yes Nausea / Vomiting: adequately controlled Pain: adequately controlled Airway Patency, RR, SpO2: stable & adequate BP & HR: stable & adequate Hydration State: stable & adequate Anesthetic Complications: no major complications apparent
[2016-06-21] MEDS ORDERED: HYDROmorphone INJ 1 MG/ML SYR ONE ×2 (20:06→20:14)
[2016-06-21] MEDS ORDERED: KETOROLAC TROMETHAMINE 30 MG/ML VIAL ONE (20:13)
[2016-06-21] MEDS ORDERED: HALOPERIDOL LACTATE 5 MG/ML 1 ML VIAL IM STA ×2 (20:51→22:14)
[2016-06-21] MEDS ORDERED: PHENAZOPYRIDINE HCL 100 MG TAB PO PRN (21:00)
[2016-06-21] MEDS: CALCIUM 600MG + VIT D 400 IU TAB PO SCH (21:00)
[2016-06-21] MEDS: D5W AND 1/2NSS + 20MEQ KCL 1,000 ML IV SCH (21:21)
--- NOTE | 2016-06-21 22:06 | OPERATIVE REPORT ---
DATE OF OPERATION: 06/21/2016 SURGEON: Dr. Topete. COMB SETTER: GALE Christian. PREOPERATIVE DIAGNOSIS: Right Clarita B1 periprosthetic femur fracture. POSTOPERATIVE DIAGNOSIS: Same. PROCEDURE PERFORMED: Open reduction and internal fixation of right periprosthetic femur fracture. COMPLICATIONS: None. ESTIMATED BLOOD LOSS: 400 mL. FLUID REPLACEMENT: 1700 mL crystalloid fluid replacement. OPERATIVE INDICATIONS: The patient is an 80-year-old gentleman who is a walker ambulator, who sustained a fall at the [facility] yesterday, when he slipped on some wet surface. He was brought to the Emergency Room, x-rayed the right periprosthetic femur fracture. This hip replacement was done back in 1988 at [facility]. It was uncemented implant and it looked like the implant was well fixed clinically and also at the time of surgery. The patient was indicated for open reduction and internal fixation. The patient has been medically optimized. OPERATIVE IMPLANTS: Operative implants consisted of: 1. A 12-hole proximal Synthes femoral locking hook plate. 2. 7.3 cannulated locking screw x1. 3. 5.0 locking screws x4. 4. 4.5 fully threaded cortical screws x2. 5. 1.7 mm cables x6. 6. Synthes cable buttons x3. OPERATIVE PROCEDURE: The patient taken to the operating room, identified and placed on the operating table in supine position. All contact areas were appropriately padded. General anesthetic was implemented by anesthesia team as the patient has been on Aggrenox due to history of some TIAs. The patient was then placed in the left lateral decubitus position. An axillary roll was placed. A Stulberg hip positioner was used for positioning. All contact areas were meticulously padded. I brought in x-ray and made sure we could get adequate radiographs. The right hip and lower leg were then prepped and draped in usual sterile fashion. A direct lateral approach to the proximal femur was then performed through a longitudinal incision using the previous total hip incision extending distally. Sharp dissection was carried out through the subcutaneous tissues down to the level of the IT band and gluteal fascia. The IT band and gluteal fascia was incised longitudinally in line with the skin incision. The vastus lateralis was then retracted anteriorly. The fracture site was easily visible. I took several reduction clamps and reduced this after debriding the fracture site of blood clot. I then placed 2 Synthes 1.7 mm cables around the fracture, 1 proximally, 1 distally. I brought in x-ray and we had this anatomically aligned. I assessed the implant and it did not appear to be moving and appeared to be fixed. Therefore we proceeded with definitive fixation. The patient had chronic changes to his greater trochanter, so we took a Synthes 12-hole proximal femoral locking hook plate and had to contour the proximal segment to this. I then fixed it proximally with three 1.7 mm cables passed through cable buttons. I then fixed it distally with two 4.5 fully threaded cortical screws. I then placed 3 additional 5.0 locking screws distally and placed an additional 1.7 cable around the proximal segment. I then placed a single 5.0 locking screw through one of the holes in the trochanter portion of the plate and then an additional 7.3 screw through the more proximal hole. We tried to get as much purchase as possible. X-ray was brought in. The fracture was anatomically aligned. Some final x-rays were obtained. The wound was then irrigated with copious amounts of normal saline. I did inject locally with 30 mL of 0.5% Marcaine with epinephrine. Attention was then drawn toward closing. The vastus lateralis was closed with #1 Vicryl suture in a locosm-lp-loxyw fashion. The IT band and gluteal fascia were then closed with #1 Vicryl suture in a combination of simple fashion as well as running fashion. The subcutaneous tissues were then closed with 2-0 Dexon suture in a buried interrupted fashion. Skin was closed with skin shailesh. Leg was then cleaned and dried and a sterile dressing composed of Xeroform, 4 x 4s, ABD pad and foam tape was applied. The patient then brought out of general anesthesia and transferred to the recovery room in stable condition. The patient tolerated the procedure well with no complications. All needle and sponge counts were correct at the end of the operation. I attest to the content of the Intraoperative Record and any orders documented therein. Any exceptio ns are noted below.
[2016-06-21] MEDS ORDERED: LORAZEPAM INJ 1 MG in SYRINGE 0.5 ML IV STA (22:18)
[2016-06-22] MEDS: MoRPHine SULFATE 4 MG/ML 1 ML CARP\\VIAL IV PRN ×2 (00:27→04:27)
[2016-06-22] MEDS: CEFAZOLIN IV 2,000 MG in DEXTROSE 5% 50ML 50 ML IV SCH ×2 (00:59→08:07)
[2016-06-22 04:37] VITALS: BP 147/81; PULSE 71; O2SAT 96
[2016-06-22] MEDS ORDERED: LORAZEPAM INJ 1 MG in SYRINGE 0.5 ML IV ONE (05:30)
[2016-06-22] MEDS ORDERED: NURSING VERBAL MED ORDER ONE (05:30)
[2016-06-22] MEDS ORDERED: CEFAZOLIN IV 2,000 MG in DEXTROSE 5% 50ML 50 ML IV SCH (06:00)
[2016-06-22] MEDS: D5W AND 1/2NSS + 20MEQ KCL 1,000 ML IV SCH ×2 (06:42→15:44)
[2016-06-22] MEDS: DIPYRIDAMOLE/ASPIRIN CAP PO SCH ×2 (06:42→20:56)
[2016-06-22 06:48] LABS: BASO % 0.1 %; BASO ABS # 0.01 K/uL (0-0.2); COMPLETE YES; EOS % 0.8 %; HEMATOCRIT 35.4 % (42-52); IG% 0.3 %; LYMPH % 8.6 %; LYMPH ABS # 0.83 K/uL (1.2-3.4); MEAN CELL VOLUME 90.5 fL (80-100); MEAN CORPUSCULAR HEMOGLOBIN 30.9 pg (25-34); MEAN CORPUSCULAR HGB CONC 34.2 g/dl (32-36); MEAN PLATELET VOLUME 10.2 fL (7.4-10.4); MONO % 12.4 %; NEUT % 77.8 %; PLATELET COUNT 112 K/uL (130-400); RED BLOOD COUNT 3.91 M/uL (4.7-6.1)
[2016-06-22 07:03] VITALS: BP 123/77; PULSE 87; TEMP 37; O2SAT 97
[2016-06-22 07:14] LABS: BUN/CREATININE RATIO 22.3 (10-20); CALCIUM 7.9 mg/dl (8.5-10.1); CREATININE 1.3 mg/dl (0.60-1.40); POTASSIUM 4.3 mmol/L (3.5-5.1)
--- NOTE | 2016-06-22 07:36 | PROGRESS NOTE ---
DATE: 06/22/2016 SUBJECTIVE: 80-year-old gentleman postop day 1 from ORIF of a right periprosthetic femur fracture. He has been pretty confused overnight and a bit combative. They have given him some various pain medicines which have not had a whole lot of result. He is not really complaining of any particular leg pain this morning. OBJECTIVE: VITAL SIGNS: Temperature 37.0. Vital signs stable. PHYSICAL EXAMINATION: GENERAL: Agitated elderly male who is lying in bed and has all his clothes stripped off of him. EXTREMITIES: Examination of the right hip and leg reveals the dressing to be clean, dry and intact. His thigh is soft and supple. There is no visible deformity. He is neurologically intact. He does follow commands. LABORATORY DATA: Hemoglobin 12.1, hematocrit 35.4. Electrolytes are pending. ASSESSMENT: 80-year-old gentleman postop day 2 from a right periprosthetic fracture ORIF. Clearly has been a bit confused and combative, which is not too unusual after anesthesia in the hospital. We really need to limit any narcotics until his confusion passes. PLAN: 1. DVT prophylaxis including thigh high TEDS, SCDs. We will put him back on his Aggrenox. I think he is pretty high risk to put him on more aggressive anticoagulation. I think we will just stick with the Aggrenox. 2. PT/OT. He is touch weightbearing only for the next 6 weeks. 3. Medical management as per the medicine service. 4. Pain control. I would eliminate all narcotics until he is more awake, alert and appropriate. He can get Tylenol around the clock. 5. Disposition: Will get marriage and family social worker working for possible rehabilitation visit after the hospital. Any questions can be directed to me at [phone].
--- NOTE | 2016-06-22 08:22 | Anesthesiology Progress Note ---
Anesthesia Post Op Note Date & Time Jun 22, 2016 at 08:20 Vital Signs Pain Intensity: 3.0 Vital Signs Past 12 Hours Date Time Temp Pulse Resp B/P Pulse Ox O2 Delivery O2 Flow Rate FiO2 06/22/16 07:52 Room Air 06/22/16 07:03 37.0 87 20 123/77 97 Nasal Cannula 2.0 06/22/16 04:37 71 20 147/81 96 Nasal Cannula 4.0 06/22/16 00:25 Nasal Cannula 2.0 06/21/16 23:38 96 Nasal Cannula 2.0 06/21/16 23:34 96 Nasal Cannula 2.0 06/21/16 23:01 36.9 73 20 130/73 96 Nasal Cannula 3.0 06/21/16 22:22 15 122/81 06/21/16 22:00 36.3 85 27 179/93 96 Nasal Cannula 2.0 06/21/16 21:00 36.3 75 18 136/76 96 Nasal Cannula 2.0 06/21/16 20:30 36.3 70 18 130/70 96 Nasal Cannula 2.0 06/21/16 20:25 36.8 16 131/62 100 Nasal Cannula 3 Notes Mental Status: alert / awake / arousable, participated in evaluation Pt Amnestic to Procedure: Yes Nausea / Vomiting: adequately controlled Pain: adequately controlled Airway Patency, RR, SpO2: stable & adequate BP & HR: stable & adequate Hydration State: stable & adequate Anesthetic Complications: no major complications apparent Confused this AM....will follow.
[2016-06-22] MEDS: FERROUS GLUCONATE 324 MG TAB PO SCH ×3 (08:46→17:45)
[2016-06-22] MEDS: PANTOprazole SOD 40 MG TAB PO SCH (08:46)
[2016-06-22] MEDS: MULTIVITAMIN TAB PO SCH (08:47)
[2016-06-22] MEDS ORDERED: MULTIVITAMIN TAB PO SCH (09:00)
[2016-06-22] MEDS: TRAMADOL HCL 50 MG TAB PO PRN ×3 (10:21→20:55)
[2016-06-22 15:32] VITALS: BP 152/76; PULSE 77; TEMP 36.9; O2SAT 96
--- NOTE | 2016-06-22 18:42 | Hospitalist Progress Note ---
Hospitalist Progress Note Date of Service Jun 22, 2016. Subjective Pt evaluation today including: conversation w/ patient, physical exam, chart review Medications Medications (Trade) Dose Ordered Sig/Momo Route Start Time Stop Time Status Last Admin Dose Admin Fentanyl Citrate (Fentanyl Inj) 50 mcg Q5M PRN IV 06/21/16 14:45 06/21/16 19:45 DC 06/21/16 19:42 50 MCG Bupivacaine HCl/ Epinephrine Bitart (Sensorcaine/ Epinephrine 0.5% Mpf 1:200,000) 60 ml STK-MED ONCE .ROUTE 06/21/16 15:05 06/21/16 15:06 DC 06/21/16 19:07 30 ML Bacitracin (Bacitracin Inj) 50,000 units STK-MED ONCE .ROUTE 06/21/16 15:06 06/21/16 15:07 DC 06/21/16 19:00 50,000 UNITS Cefazolin Sodium 2000 mg 2,000 mg STK-MED ONCE IV 06/21/16 15:50 06/21/16 15:51 DC 06/21/16 15:48 2,000 MG Potassium Chloride/Dextrose/ Sod Cl 1,000 ml @ 100 mls/hr Q10H IV 06/21/16 19:35 07/21/16 19:34 06/22/16 06:42 100 MLS/HR Cefazolin Sodium/ Dextrose (Ancef Iv/D5 50ml) 60 ml @ 100 mls/hr Q8H IV 06/22/16 00:00 06/22/16 08:35 06/22/16 00:59 100 MLS/HR Fentanyl Citrate (Fentanyl Inj) 100 mcg STK-MED ONCE .ROUTE 06/21/16 19:46 06/21/16 19:47 DC 06/21/16 19:50 50 MCG Dipyridamole/ Aspirin (Aggrenox 200MG/ 25MG Cap) 1 cap BID PO 06/22/16 07:00 07/22/16 06:59 06/22/16 06:42 1 CAP Hydromorphone HCl (Dilaudid Inj) 1 mg STK-MED ONCE .ROUTE 06/21/16 20:06 06/21/16 20:07 DC 06/21/16 20:05 0.5 MG Phenazopyridine HCl (Pyridium Tab) 100 mg TID PRN PO 06/21/16 21:00 07/21/16 20:59 06/21/16 21:32 100 MG Haloperidol Lactate 5 mg 5 mg NOW STAT IM 06/21/16 20:51 06/21/16 21:03 DC 06/21/16 21:08 5 MG Lorazepam/Syringe (Ativan Inj/ Syringe) 1 ml @ 0.5 mls/min NOW STAT IV 06/21/16 22:18 06/21/16 22:19 DC 06/22/16 00:59 0.5 MLS/MIN Objective Vital Signs Date Time Temp Pulse Resp B/P Pulse Ox O2 Delivery O2 Flow Rate FiO2 06/22/16 07:03 37.0 87 20 123/77 97 Nasal Cannula 2.0 06/22/16 04:37 71 20 147/81 96 Nasal Cannula 4.0 06/22/16 00:25 Nasal Cannula 2.0 06/21/16 23:38 96 Nasal Cannula 2.0 06/21/16 23:34 96 Nasal Cannula 2.0 06/21/16 23:01 36.9 73 20 130/73 96 Nasal Cannula 3.0 06/21/16 22:22 15 122/81 06/21/16 22:00 36.3 85 27 179/93 96 Nasal Cannula 2.0 06/21/16 21:00 36.3 75 18 136/76 96 Nasal Cannula 2.0 06/21/16 20:30 36.3 70 18 130/70 96 Nasal Cannula 2.0 06/21/16 20:25 36.8 16 131/62 100 Nasal Cannula 3 06/21/16 20:15 59 16 131/71 100 Nasal Cannula 3 06/21/16 20:10 149/74 06/21/16 20:07 86 12 97 06/21/16 20:07 86 12 06/21/16 20:05 130/112 06/21/16 20:02 78 15 97 06/21/16 20:02 78 15 06/21/16 20:00 137/112 06/21/16 19:57 67 23 06/21/16 19:57 67 23 95 06/21/16 19:56 67 17 96 06/21/16 19:56 67 17 06/21/16 19:55 142/85 06/21/16 19:51 63 18 98 06/21/16 19:51 63 18 06/21/16 19:50 149/80 06/21/16 19:46 62 17 94 06/21/16 19:46 62 17 06/21/16 19:45 154/94 06/21/16 19:44 65 16 06/21/16 19:44 65 16 94 06/21/16 19:40 168/78 06/21/16 19:39 71 17 06/21/16 19:39 71 17 96 06/21/16 19:36 151/101 06/21/16 19:34 69 25 97 06/21/16 19:34 69 25 06/21/16 19:31 135/81 06/21/16 19:29 69 21 06/21/16 19:29 69 21 141/83 100 06/21/16 19:29 36.9 70 16 141/83 100 Mask 10 06/21/16 08:16 Room Air 06/21/16 07:50 37.2 52 18 117/70 96 Room Air Physical Exam General Appearance: WD/WN, no apparent distress Eyes: normal inspection, PERRL, EOMI ENT: normal ENT inspection, hearing grossly normal, TMs normal Neck: supple, no adenopathy, thyroid normal Respiratory/Chest: chest non-tender, lungs clear, normal breath sounds Cardiovascular: regular rate, rhythm, no edema, no JVD, + systolic murmur Abdomen: normal bowel sounds, non tender, soft Neurologic/Psychiatric: alert Laboratory Results Last 24 Hours Test 06/21/16 22:16 06/22/16 06:17 Troponin I < 0.015 ng/ml White Blood Count 9.60 K/uL Red Blood Count 3.91 M/uL Hemoglobin 12.1 g/dL Hematocrit 35.4 % Mean Corpuscular Volume 90.5 fL Mean Corpuscular Hemoglobin 30.9 pg Mean Corpuscular Hemoglobin Concent 34.2 g/dl Platelet Count 112 K/uL Mean Platelet Volume 10.2 fL Neutrophils (%) (Auto) 77.8 % Lymphocytes (%) (Auto) 8.6 % Monocytes (%) (Auto) 12.4 % Eosinophils (%) (Auto) 0.8 % Basophils (%) (Auto) 0.1 % Neutrophils # (Auto) 7.46 K/uL Lymphocytes # (Auto) 0.83 K/uL Monocytes # (Auto) 1.19 K/uL Eosinophils # (Auto) 0.08 K/uL Basophils # (Auto) 0.01 K/uL RDW Standard Deviation 43.6 fL RDW Coefficient of Variation 13.3 % Immature Granulocyte % (Auto) 0.3 % Immature Granulocyte # (Auto) 0.03 K/uL Assessment and Plan This patient is an 80-year-old male with a history of remote TIA, BPH, Zenker's diverticulum with repair, cervical spine disease status post laminectomy, stage I bladder cancer, and a more recent workup for vascular dementia as well as a previous right total hip arthroplasty, who presents to the ER after a fall in the locker room at the [facility] which resulted in a proximal right femur periprosthetic spiral fracture. He also sustained head trauma with a loss of consciousness but with no acute changes on CT of the head and no signs of concussion on admission. Right periprosthetic proximal spiral femur fracture/mechanical fall/closed head injury/loss of consciousness-patient with need for urgent surgical repair. He is easily able to achieve at least 4 metastases prior to this injury and had a fairly normal echocardiogram 10 months ago with no acute changes on his EKG. There is nothing from a cardiovascular standpoint that should preclude him from undergoing this intermediate risk orthopedic surgery to repair his fracture. It should be noted that his reports some combativeness post anesthesia from his previous surgery a few years ago. s/p Hip surgery. Doing well. CT of the head and neck with no acute changes. -Morphine when necessary pain and Zofran when necessary nausea -Continue IV fluids and make nothing by mouth after midnight in preparation for surgery -Orthopedic surgery consultation for surgical management appreciated -SCDs for DVT prophylaxis for now History of TIA-currently undergoing workup for vascular dementia and was scheduled to have a brain MRI as an outpatient later this week. -Hold Aggrenox for surgery and restart when okay with orthopedic surgery postoperatively -We'll need to monitor for any postop delirium in the setting of possible early dementia especially with use of narcotics for pain control History of Zenker's diverticulum and dysphasia-may be recurring as per patient and his -Watch for difficulties with swallowing -Consider speech therapy evaluation History of BPH status post TURP-stable, Vaughn in place at this time DVT prophylaxis: SCDs Disposition full code We'll need PT and OT E Fels and possible rehabilitation placement
[2016-06-22] MEDS: CALCIUM 600MG + VIT D 400 IU TAB PO SCH (20:56)
[2016-06-22] MEDS: BIMATOPROST 0.01% OP SOLN 2.5 ML BTL OPB SCH (20:56)
--- NOTE | 2016-06-22 21:47 | Discharge Instructions ---
Discharge Instructions Date of Service Jun 22, 2016. Admission Reason for Admission: Fracture Of Proximal End Of Right Femur Discharge Discharge Diagnosis / Problem: ORIF Right Periprosthetic Femur Fracture Discharge Goals Goal(s): Decrease discomfort, Improve function, Improve disease control, Therapeutic intervention Activity Recommendations Activity Limitations: per Instructions/Follow-up section (Toe-touch WB only on right leg for 6 weeks) Weightbearing Status: Right toe touch (Toe-touch WB right side for 6 weeks) . Instructions / Follow-Up Instructions / Follow-Up Toe-touch WB right leg for 6 weeks. Keep wound/incision site clean and dry. Current Hospital Diet Patient's current hospital diet: Regular Diet Discharge Diet Recommended Diet: Regular Diet Procedures Procedures Performed: open reduction and internal fixation of right rabia-prosthetic femur fracture Pending Studies Studies pending at discharge: no Medical Emergencies . Who to Call and When: Medical Emergencies: If at any time you feel your situation is an emergency, please call 911 immediately. . Non-Emergent Contact Non-Emergency issues call your: Surgeon . "Provider Documentation" section prepared by Darryl Topete. VTE Core Measure Inpt VTE Proph given/why not?: Other Anticoagulation, T.E.D. Stockings, SCD's
[2016-06-22 23:09] VITALS: BP 187/93; PULSE 77; TEMP 36.5; O2SAT 92
[2016-06-23] MEDS: D5W AND 1/2NSS + 20MEQ KCL 1,000 ML IV SCH ×3 (01:43→20:59)
[2016-06-23] MEDS: TRAMADOL HCL 50 MG TAB PO PRN ×3 (01:44→12:20)
[2016-06-23] MEDS ORDERED: NURSING VERBAL MED ORDER ONE (03:00)
[2016-06-23] MEDS ORDERED: LORAZEPAM 0.5 MG TAB ONE (03:11)
[2016-06-23 06:26] LABS: HEMATOCRIT 31.9 % (42-52); MEAN CELL VOLUME 89.9 fL (80-100); MEAN CORPUSCULAR HEMOGLOBIN 31.3 pg (25-34); MEAN CORPUSCULAR HGB CONC 34.8 g/dl (32-36); MEAN PLATELET VOLUME 10.2 fL (7.4-10.4); PLATELET COUNT 125 K/uL (130-400); RED BLOOD COUNT 3.55 M/uL (4.7-6.1); WHITE BLOOD COUNT 11.51 K/uL (4.8-10.8)
[2016-06-23 07:00] VITALS: BP 160/68; PULSE 80; TEMP 36.4; O2SAT 94
[2016-06-23 07:26] LABS: MANUAL MICROSCOPIC REQUIRED? NO; REVIEW REQ? NO; URINE APPEARANCE CLEAR (CLEAR); URINE BILIRUBIN NEG (NEG); URINE COLOR DK YELLOW; URINE NITRITE NEG (NEG); UROBILINOGEN NEG (NEG)
--- NOTE | 2016-06-23 07:48 | PROGRESS NOTE ---
DATE: 06/23/2016 SUBJECTIVE: An 80-year-old gentleman, postop day #2 from ORIF of right periprosthetic femur fracture. He continues to be confused, but seems a little bit better this morning. He denies any significant leg pain. He is still pretty confused. OBJECTIVE: VITAL SIGNS: Temperature 36.4. Vital signs stable. GENERAL: Shows a pleasant elderly male. He is lying in bed. He is certainly arousable and follows simple commands. He is a still bit confused. EXTREMITIES: Examination of the right leg reveals the dressing to be clean, dry and intact. His thigh is soft and supple. There is some mild swelling. NEUROLOGIC: Intact. LABORATORY DATA: Hemoglobin 11.1, hematocrit 31.9. White cell count 11.51. Electrolytes are stable. ASSESSMENT: An 80-year-old gentleman, postoperative day #2 from open reduction and internal fixation of right periprosthetic femur fracture, doing okay. He is still struggling with some confusion, which is probably multifactorial from his surgery as well as his underlying dementia. PLAN: 1. DVT prophylaxis including thigh-high TEDs, SCDs and I would stick with Aggrenox. 2. PT/OT. He is touch weightbearing only, right lower extremity. He does not need hip precautions. 3. Medical management, as per the medicine service. 4. Disposition: He would certainly benefit from rehabilitation stay. 5. Pain control. We are going to hold the narcotic pain medicines until this confusion passes. Any questions can be directed to me at [phone].
[2016-06-23] MEDS: FERROUS GLUCONATE 324 MG TAB PO SCH ×3 (08:49→18:00)
[2016-06-23] MEDS: MULTIVITAMIN TAB PO SCH (08:49)
[2016-06-23] MEDS: DIPYRIDAMOLE/ASPIRIN CAP PO SCH ×2 (08:49→21:02)
[2016-06-23] MEDS: PANTOprazole SOD 40 MG TAB PO SCH (08:50)
[2016-06-23 09:15] VITALS: BP 148/81
[2016-06-23 14:28] VITALS: BP 122/71; PULSE 68; TEMP 37.1; O2SAT 97
[2016-06-23 16:00] VITALS: O2SAT 97
--- NOTE | 2016-06-23 17:19 | Hospitalist Progress Note ---
Hospitalist Progress Note Date of Service Jun 23, 2016. Subjective Pt evaluation today including: conversation w/ patient, physical exam, chart review, review of studies Respiratory: No cough, No dyspnea at rest, No dyspnea on exertion, No hemoptysis, No problem reported, No see HPI, No shortness of breath, No sputum, No wheezing Cardiovascular: No PND, No chest pain, No claudication, No edema, No orthopnea, No palpitations, No problem reported, No see HPI Neurologic: + problem reported (confusion) Objective Vital Signs Date Time Temp Pulse Resp B/P Pulse Ox O2 Delivery O2 Flow Rate FiO2 06/23/16 16:00 97 Room Air 06/23/16 14:28 37.1 68 17 122/71 97 Room Air 06/23/16 09:15 148/81 06/23/16 08:15 Room Air 06/23/16 07:00 36.4 80 19 160/68 94 Room Air 06/22/16 23:50 Room Air 06/22/16 23:09 36.5 77 20 187/93 92 Room Air 06/22/16 19:30 Room Air Physical Exam General Appearance: WD/WN, no apparent distress Eyes: normal inspection ENT: normal ENT inspection Neck: supple Respiratory/Chest: chest non-tender Cardiovascular: regular rate, rhythm, no edema Abdomen: normal bowel sounds Extremities: normal range of motion Neurologic/Psychiatric: no motor/sensory deficits, alert, + disoriented Skin: normal color Laboratory Results Last 24 Hours Test 06/23/16 05:31 06/23/16 06:45 White Blood Count 11.51 K/uL Red Blood Count 3.55 M/uL Hemoglobin 11.1 g/dL Hematocrit 31.9 % Mean Corpuscular Volume 89.9 fL Mean Corpuscular Hemoglobin 31.3 pg Mean Corpuscular Hemoglobin Concent 34.8 g/dl RDW Standard Deviation 42.5 fL RDW Coefficient of Variation 12.9 % Platelet Count 125 K/uL Mean Platelet Volume 10.2 fL Urine Color DK YELLOW Urine Appearance CLEAR Urine pH 5.0 Urine Specific [place] 1.020 Urine Protein NEG Urine Glucose (UA) NEG Urine Ketones NEG Urine Occult Blood NEG Urine Nitrite NEG Urine Bilirubin NEG Urine Urobilinogen NEG Urine Leukocyte Esterase NEG Assessment and Plan This patient is an 80-year-old male with a history of remote TIA, BPH, Zenker's diverticulum with repair, cervical spine disease status post laminectomy, stage I bladder cancer, and a more recent workup for vascular dementia as well as a previous right total hip arthroplasty, who presents to the ER after a fall in the locker room at the [facility] which resulted in a proximal right femur periprosthetic spiral fracture. He also sustained head trauma with a loss of consciousness but with no acute changes on CT of the head and no signs of concussion on admission. Right periprosthetic proximal spiral femur fracture/mechanical fall/closed head injury/loss of consciousness-patient with need for urgent surgical repair. He is easily able to achieve at least 4 metastases prior to this injury and had a fairly normal echocardiogram 10 months ago with no acute changes on his EKG. There is nothing from a cardiovascular standpoint that should preclude him from undergoing this intermediate risk orthopedic surgery to repair his fracture. It should be noted that his reports some combativeness post anesthesia from his previous surgery a few years ago. s/p Hip surgery. -Confused this am. ? secondary to sedatives. Will dc sedative hypnotics. -Also increase in WCC,although no temp spikes. Will monitor for signs of infection. -UA is negative for UTI. CT of the head and neck with no acute changes. -Morphine when necessary pain and Zofran when necessary nausea -Continue IV fluids and make nothing by mouth after midnight in preparation for surgery -Orthopedic surgery consultation for surgical management appreciated -SCDs for DVT prophylaxis for now History of TIA-currently undergoing workup for vascular dementia and was scheduled to have a brain MRI as an outpatient later this week. -Hold Aggrenox for surgery and restart when okay with orthopedic surgery postoperatively -We'll need to monitor for any postop delirium in the setting of possible early dementia especially with use of narcotics for pain control History of Zenker's diverticulum and dysphasia-may be recurring as per patient and his -Watch for difficulties with swallowing -Consider speech therapy evaluation History of BPH status post TURP-stable, Vaughn in place at this time DVT prophylaxis: SCDs Disposition full code We'll need PT and OT E Fels and possible rehabilitation placement
[2016-06-23] MEDS ORDERED: LIDOCAINE HCL 2% JELLY 30 ML TUBE EXT ONE (18:55)
[2016-06-23] MEDS ORDERED: LIDOCAINE 2% JELLY 5 ML TUBE EXT PRN (19:00)
[2016-06-23] MEDS ORDERED: NURSING DECISION MEDICATION ORDER SCH (19:00)
[2016-06-23] MEDS: MoRPHine SULFATE 2 MG/ML CARP IV PRN ×3 (19:14→23:43)
[2016-06-23] MEDS: BIMATOPROST 0.01% OP SOLN 2.5 ML BTL OPB SCH (21:00)
[2016-06-23] MEDS: CALCIUM 600MG + VIT D 400 IU TAB PO SCH (21:00)
[2016-06-23 23:08] VITALS: BP 172/85; PULSE 90; TEMP 36.4; O2SAT 95
[2016-06-23] MEDS: DiphenhydrAMINE HCL 50 MG/ML VIAL IV PRN (23:42)
[2016-06-24] MEDS: MoRPHine SULFATE 2 MG/ML CARP IV PRN (01:44)
[2016-06-24] MEDS: MoRPHine SULFATE 4 MG/ML 1 ML CARP\\VIAL IV PRN (04:19)
[2016-06-24] MEDS: D5W AND 1/2NSS + 20MEQ KCL 1,000 ML IV SCH ×2 (06:29→09:35)
[2016-06-24 06:50] LABS: HEMATOCRIT 29.4 % (42-52); MEAN CELL VOLUME 91.6 fL (80-100); MEAN CORPUSCULAR HEMOGLOBIN 31.2 pg (25-34); PLATELET COUNT 136 K/uL (130-400); RED BLOOD COUNT 3.21 M/uL (4.7-6.1); WHITE BLOOD COUNT 6.29 K/uL (4.8-10.8)
[2016-06-24 07:05] VITALS: BP 164/90; PULSE 69; TEMP 36.9; O2SAT 96
[2016-06-24] MEDS: DiphenhydrAMINE HCL 50 MG/ML VIAL IV PRN (07:50)
[2016-06-24] MEDS: DIPYRIDAMOLE/ASPIRIN CAP PO SCH (09:35)
[2016-06-24] MEDS: PANTOprazole SOD 40 MG TAB PO SCH (09:35)
[2016-06-24] MEDS: MULTIVITAMIN TAB PO SCH (09:35)
[2016-06-24] MEDS: FERROUS GLUCONATE 324 MG TAB PO SCH ×2 (09:35→13:05)
[2016-06-24] MEDS: TRAMADOL HCL 50 MG TAB PO PRN (09:43)
[2016-06-24] MEDS ORDERED: FRRG PO (12:54)
--- NOTE | 2016-06-24 13:09 | Discharge Summary ---
Discharge Summary Date of Service Jun 24, 2016. Discharge Summary Admission Date: Jun 20, 2016 at 19:54 Discharge Date: Jun 24, 2016 Discharge Disposition: Rehab Principal Diagnosis: Fracture right hip. Problems/Secondary Diagnoses: TIA Immunizations: Have You Had Influenza Vaccine: No History of Tetanus Vaccine?: Unknown History of Pneumococcal: Unknown History of Hepatitis B Vaccine: Unknown Procedures: [~ rep ct add3]] SINGLE VIEW PELVIS; 2 VIEWS RIGHT HIP; 2 VIEWS RIGHT FEMUR CLINICAL HISTORY: Fall with right hip pain. FINDINGS: An AP view of the pelvis with AP and frog-leg views of the right hip as well as AP and lateral views of the right femur are correlated with pelvic radiograph dated 07/24/2007. The skeletal structures are osteopenic. No fracture is identified in the bony pelvis or the visualized left hip. A right hip arthroplasty is in near-anatomic alignment. There is a spiral fracture through the proximal shaft of the right femur around the arthroplasty stem. There is approximately 6 mm cortical offset at the distal margin of the fracture. The distal femoral shaft is intact. The right knee is grossly maintained noting arthritic change. Mild soft tissue edema is present in the upper thigh. Chronic heterotopic bone formation is noted around the proximal aspect of the arthroplasty. Sclerotic change is seen in the sacroiliac joints. Lumbosacral spondylosis is partially imaged. There is a nonobstructed abdominal bowel gas pattern noting significant colonic fecal retention. IMPRESSION: 1. There is a minimally distracted spiral fracture through the proximal shaft of the right femur around the stem of the right hip arthroplasty. 2. No additional fracture is seen. The bony pelvis appears intact, as does the distal femur. Electronically signed by: Jagdeep Marlow M.D. 06/20/2016 4:49 PM RIGHT FEMUR 2 VIEWS ROUTINE CLINICAL HISTORY: ORIF periprosthetic Right femur FX Right fracture COMPARISON: None. DISCUSSION: Images utilized for intraoperative localization purposes. Longstem femoral prosthetic with compression wires is present. There is a linear plate traversing the bulk of the femoral shaft with screw fixation. IMPRESSION: Intraoperative right femoral films as described Electronically signed by: Mook Mock M.D. 06/21/2016 7:04 PM Dictated Date/Time: 06/21/2016 7:04 PM Consultations: Orthopedics Medication Reconciliation New Medications: Ferrous Gluconate (Ferrous Gluconate) 324 Mg Tab 324 MG PO TIDM for 30 Days, #90 TAB 4 Refills Continued Medications: Bimatoprost (Lumigan) 0.01 % Leatha 1 DROP OPB HS, #7 Calcium Citrate-Vitamin D (Calcium Citrate + D) 1 Tab Tab 1 TAB PO QPM Dipyridamole/Aspirin (Aggrenox 25-200 mg) 1 Cap Cap 1 CAP PO BID for 90 Days, #180 CAP 3 Refills Multiple Vitamin (Multivitamin) 1 Tab Tab 1 TAB PO QAM, TAB Discharge Exam Physical Exam: General Appearance: WD/WN, no apparent distress Eyes: normal inspection, PERRL ENT: normal ENT inspection, hearing grossly normal Neck: supple, no adenopathy, thyroid normal Respiratory/Chest: chest non-tender, lungs clear, normal breath sounds Cardiovascular: regular rate, rhythm, no edema, no gallop Abdomen / GI: normal bowel sounds, non tender, soft 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 He also sustained head trauma with a loss of consciousness but with no acute changes on CT of the head and no signs of concussion on admission. Right periprosthetic proximal spiral femur fracture/mechanical fall/closed head injury/loss of consciousness-patient with need for urgent surgical repair. He is easily able to achieve at least 4 metastases prior to this injury and had a fairly normal echocardiogram 10 months ago with no acute changes on his EKG. There is nothing from a cardiovascular standpoint that should preclude him from undergoing this intermediate risk orthopedic surgery to repair his fracture. It should be noted that his reports some combativeness post anesthesia from his previous surgery a few years ago. s/p Hip surgery. open reduction and internal fixation of right rabia-prosthetic femur fracture History of TIA-currently undergoing workup for vascular dementia and was scheduled to have a brain MRI as an outpatient later this week. -Held Aggrenox for surgery and restarted when okay with orthopedic surgery postoperatively Post op confusion -Likely related to pain and sedation medications History of Zenker's diverticulum and dysphasia-may be recurring as per patient and his -Watch for difficulties with swallowing -Consider speech therapy evaluation History of BPH status post TURP-stable, Vaughn in place at this time DVT prophylaxis: SCDs Disposition full code We'll need PT and OT E Fels and possible rehabilitation placement Total Time Spent: Greater than 30 minutes This includes examination of the patient, discharge planning, medication reconciliation, and communication with other providers. Discharge Instructions Please refer to the electronic Patient Visit Report (Discharge Instructions) for additional information. Follow-Up Dr.James Efrem MD in one week.
[2016-06-24 13:15] VITALS: BP 164/90; PULSE 69; TEMP 36.9; O2SAT 96
--- NOTE | 2016-06-24 18:32 | PROGRESS NOTE ---
DATE: 06/24/2016 CHIEF COMPLAINT: Status post ORIF right periprosthetic femur fracture postop day #3. PROGRESS: Alvarado was seen and examined at bedside today. Unfortunately, he was very confused. His family was at bedside. He did not say he was having much leg pain, but he was not answering my questions at bedside today. PHYSICAL EXAMINATION: RIGHT LEG: The dressing was clean and dry. He has been pulling off the dressing some, but it was generally intact. His leg was straight. IMPRESSION: Status post open reduction and internal fixation of right periprosthetic femur fracture, postop day #3. PLAN: He is still struggling with some confusion. He is to be touch toe weightbearing of his right lower extremity. DVT prophylaxis will be stockings, SCDs, and Aggrenox. He is orthopedically stable for discharge when he is medically ready. CHETNA
[2016-06-24] MEDS ORDERED: ACET-1311 PO (22:22)
[2016-06-24] MEDS ORDERED: TRAM-10 PO (22:22)
[2016-06-24] MEDS ORDERED: PANT40TA PO (22:22)
[2016-06-24] MEDS ORDERED: ASPI325T39 PO (22:22)
[2016-06-24] MEDS ORDERED: FERR325T18 PO (22:22)
== END 2016-06-24 13:39 | DRG 956 ==
LOC: ENRESERVTM → ENRESERVDT → EDBD 15:45 → C.EDB 15:47 → C.3E 19:54
PROVIDERS: ADMIT Family Medicine; ATTEND Family Medicine
PROC: 0QS604Z Reposition Right Upper Femur with Internal Fixation Device, Open Approach (ICD-10-PCS; principal; 2016-06-21 14:30)
DX: S72.344A Nondisplaced spiral fracture of shaft of right femur, initial encounter for closed fracture (principal); S06.9X9A Unspecified intracranial injury with loss of consciousness of unspecified duration, initial encounter; M97.01XA Periprosthetic fracture around internal prosthetic right hip joint, initial encounter; W01.0XXA Fall on same level from slipping, tripping and stumbling without subsequent striking against object, initial encounter; I10 Essential (primary) hypertension; F01.50 Vascular dementia, unspecified severity, without behavioral disturbance, psychotic disturbance, mood disturbance, and anxiety; R41.0 Disorientation, unspecified; T50.905A Adverse effect of unspecified drugs, medicaments and biological substances, initial encounter; Z79.899 Other long term (current) drug therapy; Z86.73 Personal history of transient ischemic attack (TIA), and cerebral infarction without residual deficits; Z96.641 Presence of right artificial hip joint; Y92.29 Other specified public building as the place of occurrence of the external cause; R26.0 Ataxic gait; R41.3 Other amnesia; E53.8 Deficiency of other specified B group vitamins

== ENCOUNTER 2016-06-24 21:09 | Emergency (ER) | payer BC, OTHER ==
[~2016-06-24] VITALS: Ht 180.3 cm; Wt 95.9 kg
[~2016-06-24 21:09] MED LIST changes: -DOCU1TAB6 PO; +FRRG PO; -MIRT15TA2 PO; -POLY335019 PO
[2016-06-24 21:30] VITALS: TEMP 36.7; Ht 180.3 cm; Wt 95.9 kg
[2016-06-24] MEDS ORDERED: FERR325T18 PO (22:22)
[2016-06-24] MEDS ORDERED: TRAM-10 PO (22:22)
[2016-06-24] MEDS ORDERED: ASPI325T39 PO (22:22)
[2016-06-24] MEDS ORDERED: ACET-1311 PO (22:22)
[2016-06-24] MEDS ORDERED: PANT40TA PO (22:22)
--- NOTE | 2016-06-24 22:43 | EMERGENCY ROOM VISIT NOTE ---
History Report prepared by Mat: Tamara Mendoza Under the Supervision of: Steff BeebeO. 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 He had a recent fall that resulted in a right proximal femur fracture. This required surgery and the patient was just discharged from the hospital today to [facility]. Today at [facility] he rolled out of a low bed (roughly 1 foot off the ground), and is now experiencing right leg pain. He rates his pain between an 8/ 10 in severity. He did not hit his head or lose consciousness. He reports back pain but states that this is chronic pain. The patient has a history of dementia and is a poor historian. The history was obtained from EMS and nursing staff. He was brought to the ED by ambulance. 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 Pt denies head injury. Review of Systems See HPI for pertinent positives & negatives. A total of 10 systems reviewed and were otherwise negative. 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 (4) Hypertension (5) Pneumonia (6) Right Periprosthetic Femur Fracture (7) TRANS CEREB ISCHEMIA NOS Surgical Problems: (1) H/O sinus surgery Family History Diabetes mellitus FH: cancer FH: heart disease Social History Smoking Status: Never Smoker Alcohol Use: occasionally Drug Use: none Marital Status: Housing Status: lives with family Occupation Status: retired Current/Historical Medications Scheduled Aspirin (Aspirin Ec), 325 MG PO DAILY Bimatoprost (Lumigan), 1 DROP OPB HS Calcium Citrate-Vitamin D (Calcium Citrate + D), 1 TAB PO QPM Dipyridamole/Aspirin (Aggrenox 25-200 mg), 1 CAP PO BID Ferrous Gluconate (Ferrous Gluconate), 324 MG PO TIDM Multiple Vitamin (Multivitamin), 1 TAB PO QAM Pantoprazole (Protonix), 40 MG PO DAILY Scheduled PRN Acetaminophen (Tylenol), 650 MG PO Q4H PRN for Pain or Fever Tramadol (Ultram), 50 MG PO Q4H PRN for Pain Allergies Coded Allergies: No Known Allergies (Verified , 06/24/16) Physical Exam Vital Signs Date Time Temp Pulse Resp B/P Pulse Ox O2 Delivery O2 Flow Rate FiO2 06/24/16 23:00 69 20 107/80 97 Room Air 06/24/16 21:30 36.7 65 20 140/74 97 Room Air Physical Exam CONSTITUTIONAL/VITAL SIGNS: Reviewed / noted above. GENERAL: Non-toxic in appearance. INTEGUMENTARY: Warm, dry, and Bray. HEAD: Normocephalic. No trauma. EYES: without scleral icterus or trauma. ENT/OROPHARYNX: clear and moist. LYMPHADENOPATHY/NECK: Is supple without lymphadenopathy or meningismus. RESPIRATORY: Lungs clear and equal. CARDIOVASCULAR: Regular rate and rhythm. GI/ABDOMEN: Soft and nontender. No organomegaly or pulsatile mass. No rebound or guarding. Normal bowel sounds. EXTREMITIES: Warm and well perfused. Right leg reveals post-surgical changes, ecchymosis and edema diffusely in the right femur area, shailesh located down the lateral aspect of the right femur. No obvious infection. No pain with axial loading. BACK: No CVA tenderness. NEUROLOGICAL: Intact without focal deficits. PSYCHIATRIC: normal affect. MUSCULOSKELETAL: Normally developed with good muscle tone. Medical Decision & Procedures ER Provider Diagnostic Interpretation: Radiology results as stated below per my review and radiologist interpretation: RIGHT FEMUR 2 VIEWS ROUTINE CLINICAL HISTORY: Right leg pain after fall. Recent fracture COMPARISON: Pelvis and right hip radiographs June 20, 2016 and intraoperative fluoroscopic mages of the right femur June 21, 2016. FINDINGS: Right hip arthroplasty is noted. There is also a proximal right femoral plate and screws with cerclage wires. Skin shailesh are present. When compared to intraoperative images of June 21, 2016, there appears to be displacement of the femoral plate laterally. Note is also made of a displaced fracture of the lesser trochanter of the right femur. IMPRESSION: Status post total right hip arthroplasty with recent proximal right femoral plate and screw fixation. Apparent mild lateral displacement of the femoral plate when compared to intraoperative fluoroscopic images of June 21, 2016. Possible interval development of a fracture involving the lesser trochanter although this fracture is age indeterminate. Electronically signed by: Sabas Hunt M.D. 06/24/2016 10:45 PM Dictated Date/Time: 06/24/2016 10:42 PM PELVIS 1 OR 2 VIEW ROUTINE CLINICAL HISTORY: Fall. Recent surgery COMPARISON STUDY: Pelvis and right hip radiographs June 20, 2016 and intraoperative fluoroscopic images of the right femur June 21, 2016. FINDINGS: No acute fracture within the pelvis is identified. There is no acute fracture of the proximal left femur. A total right hip arthroplasty is present. There is a proximal right femoral internal fixation with plate and screws as well as cerclage wires. A displaced fracture of the lesser trochanter is noted. Fracture displacement has increased since exam of June 21, 2016 and this fracture may be acute although is age-indeterminate. Heterotopic ossification is noted. The femoral plate appears slightly displaced when compared to intraoperative radiographs of June 21, 2016. IMPRESSION: 1. Displaced fracture of the lesser trochanter of the right femur. This fracture is age indeterminate but was not evident on intraoperative radiographs of June 21, 2016 and may be acute if interval trauma. 2. Status post total right hip arthroplasty with recent plate and screw fixation for a proximal right femoral fracture. Apparent interval slight distraction of the femoral plate. Electronically signed by: Sabas Hunt M.D. 06/24/2016 10:45 PM Dictated Date/Time: 06/24/2016 10:34 PM ED Course 2111: Previous medical records were reviewed. The patient was evaluated in room B9. A complete history and physical examination was performed. 7: I reassessed the patient at this time. He is feeling better and resting comfortably. I discussed the results and treatment plan with the patient and his . I answered all pertaining questions that they had. They expressed understanding and verbalized agreement. The patient will be discharged home. 3: At this time I discussed the patient's radiology results with Dr. Macario of orthopedics. We discussed the patient's treatment plan and he agreed that the patient can be discharged with routine follow-up in the office. Medical Decision Differential includes close head injury, intracranial bleed, facial trauma, cervical spine trauma, chest and thoracic trauma, abdominal and intra-abdominal trauma, spine neurologic trauma, extremity trauma. This is an 80-year-old male who presents to the ED with a chief complaint of a fall out of a little bit. According to the family, the patient is in a bed that is about 1 foot off the ground. The patient rolled out onto the floor. They sent him here to be checked for injury. The patient is somewhat demented and is a poor historian. There is no evidence of head injury on exam. He does not appear to have any chest tenderness on exam. There is no abdominal tenderness. The patient had a recent right hip/femur fracture. There is no pain with axial loading of the lower extremities. There is postsurgical changes but no evidence of acute infection or acute process. X-rays of the right femur and pelvis did show an apparent new intertrochanteric fracture and some minimal hardware displacement possibly compared to a fluoroscopic image. I did speak with doctors after about this. He recommends no additional treatment at this time. Office follow-up was recommended. The patient was felt to be stable for discharge. Consults Time Called: 2300 Consulting Physician: Dr. Macario Returned Call: [phone] At this time I discussed the patient's radiology results with Dr. Macario of orthopedics. We discussed the patient's treatment plan and he agreed that the patient can be discharged with routine follow-up in the office. Impression Primary Impression: Fall Additional Impression: Intertrochanteric fracture Scribe Attestation The scribe's documentation has been prepared under my direction and personally reviewed by me in its entirety. I confirm that the note above accurately reflects all work, treatment, procedures, and medical decision making performed by me. Departure Information Dispostion Home / Self-Care Referrals Hank Porter M.D. (PCP) Forms HOME CARE DOCUMENTATION FORM, IMPORTANT VISIT INFORMATION Additional Instructions Follow-up with your doctors as otherwise scheduled. Return for any concerns. Problem Qualifiers Primary Impression: Fall Encounter type: initial encounter Qualified Codes: W19.XXXA - Unspecified fall, initial encounter
--- NOTE | 2016-06-24 22:46 | DIAGNOSTIC IMAGING REPORT ---
RIGHT FEMUR 2 VIEWS ROUTINE CLINICAL HISTORY: Right leg pain after fall. Recent fracture COMPARISON: Pelvis and right hip radiographs June 20, 2016 and intraoperative fluoroscopic mages of the right femur June 21, 2016. FINDINGS: Right hip arthroplasty is noted. There is also a proximal right femoral plate and screws with cerclage wires. Skin shailesh are present. When compared to intraoperative images of June 21, 2016, there appears to be displacement of the femoral plate laterally. Note is also made of a displaced fracture of the lesser trochanter of the right femur. IMPRESSION: Status post total right hip arthroplasty with recent proximal right femoral plate and screw fixation. Apparent mild lateral displacement of the femoral plate when compared to intraoperative fluoroscopic images of June 21, 2016. Possible interval development of a fracture involving the lesser trochanter although this fracture is age indeterminate. Electronically signed by: Sabas Hunt M.D. 06/24/2016 10:45 PM Dictated Date/Time: 06/24/2016 10:42 PM
--- NOTE | 2016-06-24 22:47 | DIAGNOSTIC IMAGING REPORT ---
PELVIS 1 OR 2 VIEW ROUTINE CLINICAL HISTORY: Fall. Recent surgery COMPARISON STUDY: Pelvis and right hip radiographs June 20, 2016 and intraoperative fluoroscopic images of the right femur June 21, 2016. FINDINGS: No acute fracture within the pelvis is identified. There is no acute fracture of the proximal left femur. A total right hip arthroplasty is present. There is a proximal right femoral internal fixation with plate and screws as well as cerclage wires. A displaced fracture of the lesser trochanter is noted. Fracture displacement has increased since exam of June 21, 2016 and this fracture may be acute although is age-indeterminate. Heterotopic ossification is noted. The femoral plate appears slightly displaced when compared to intraoperative radiographs of June 21, 2016. IMPRESSION: 1. Displaced fracture of the lesser trochanter of the right femur. This fracture is age indeterminate but was not evident on intraoperative radiographs of June 21, 2016 and may be acute if interval trauma. 2. Status post total right hip arthroplasty with recent plate and screw fixation for a proximal right femoral fracture. Apparent interval slight distraction of the femoral plate. Electronically signed by: Sabas Hunt M.D. 06/24/2016 10:45 PM Dictated Date/Time: 06/24/2016 10:34 PM
[2016-06-24 23:00] VITALS: BP 107/80; PULSE 69; O2SAT 97
== END 2016-06-24 22:56 | disposition home or self-care (01) ==
LOC: EDBD 21:09 → C.EDB 21:10
DX: S72.121A Displaced fracture of lesser trochanter of right femur, initial encounter for closed fracture (principal); W06.XXXA Fall from bed, initial encounter; Y92.129 Unspecified place in nursing home as the place of occurrence of the external cause; I10 Essential (primary) hypertension; Z86.73 Personal history of transient ischemic attack (TIA), and cerebral infarction without residual deficits; Z87.81 Personal history of (healed) traumatic fracture; Z96.649 Presence of unspecified artificial hip joint; Z98.890 Other specified postprocedural states; Z79.82 Long term (current) use of aspirin; Z79.899 Other long term (current) drug therapy; Z83.3 Family history of diabetes mellitus; Z80.9 Family history of malignant neoplasm, unspecified; Z82.49 Family history of ischemic heart disease and other diseases of the circulatory system

== ENCOUNTER → 2016-07-14 | Outpatient (CLI) | payer BC ==
[~2016-07-14] MED LIST changes: +ACET-1311 PO; +ASPI325T39 PO; +FERR325T18 PO; -FRRG PO; +PANT40TA PO; +TRAM-10 PO
[2016-07-14 09:05] LABS: HEMATOCRIT 34.2 % (42-52); MEAN CELL VOLUME 92.9 fL (80-100); MEAN CORPUSCULAR HEMOGLOBIN 30.4 pg (25-34); MEAN CORPUSCULAR HGB CONC 32.7 g/dl (32-36); MEAN PLATELET VOLUME 9.6 fL (7.4-10.4); PLATELET COUNT 290 K/uL (130-400); RED BLOOD COUNT 3.68 M/uL (4.7-6.1); WHITE BLOOD COUNT 6.77 K/uL (4.8-10.8)
== END ==
LOC: C.LABFOXAE 08:56
PROVIDERS: ATTEND Internal Medicine
DX: M80.051D Age-related osteoporosis with current pathological fracture, right femur, subsequent encounter for fracture with routine healing (principal)

== ENCOUNTER → 2016-07-21 | Outpatient (CLI) | payer BC ==
[2016-07-21 09:17] LABS: HEMATOCRIT 35.6 % (42-52); MEAN CELL VOLUME 93.2 fL (80-100); MEAN CORPUSCULAR HEMOGLOBIN 29.8 pg (25-34); MEAN PLATELET VOLUME 9.9 fL (7.4-10.4); PLATELET COUNT 221 K/uL (130-400); RED BLOOD COUNT 3.82 M/uL (4.7-6.1)
--- NOTE | 2016-07-27 11:49 | CODING QUERY MEDICAL NECESSITY ---
CQSUPPORTING DIAGNOSIS NEEDED A supporting diagnosis is required for the test/procedure performed on this patient in order for us to be reimbursed by the patient's insurance. Please provide a supporting diagnosis for the following test/procedure listed below next to the test name along with your signature. *If there is no additional diagnosis for this patient that would support the following test/procedure please document that below next to the test/procedure. Test(s)/Procedure(s) that require a supporting diagnosis: DOS 07/21/16 BLOOD COUNT QUERY RETURNED WITH SIGNED QUERY BUT NO DIAGNOSIS PLEASE ADD DIAGNOSIS AND SIGANTURE THANK YOU Provider Signature: Date: Thank you Courtney Quispe Health Information Management Once completed, please kindly fax back to [phone] For questions please call [phone]
== END ==
LOC: C.LABFOXAC 09:10
PROVIDERS: ATTEND Internal Medicine
DX: M80.051D Age-related osteoporosis with current pathological fracture, right femur, subsequent encounter for fracture with routine healing (principal); R53.83 Other fatigue

== ENCOUNTER → 2016-08-30 | Outpatient (CLI) | payer BC ==
--- NOTE | 2016-08-30 12:01 | DIAGNOSTIC IMAGING REPORT ---
MRI OF THE BRAIN WITHOUT AND WITH IV CONTRAST CLINICAL HISTORY: R41.3 Memory [id number] Chronic cerebral [id number] COMPARISON STUDY: 10/11/2010 TECHNIQUE: MRI of the brain was performed from the vertex to the skull base utilizing various T1 and T2 weighted sequences. Following the IV administration of 8.5 mL of Gadavist contrast, additional enhanced images were obtained. FINDINGS: Sagittal T1, axial diffusion, proton density and T2 weighted axial, coronal FLAIR, and pre and post axial T1-weighted images were acquired. These were supplemented with post gadolinium coronal T1 weighted images. There is a stable left middle cranial fossa anterior temporal arachnoid cyst. Axial diffusion-weighted images reveal no evidence of acute or subacute infarction. There is mild ventricular prominence, likely secondary to volume loss. There is a giant cisterna magna. Proton density T2-weighted and FLAIR images reveal scattered foci of increased T2 signal within the white matter, likely on a small vessel basis. There is bilateral lateral temporal encephalomalacia. There are no abnormal flow voids. There is no evidence of pathologic enhancement. IMPRESSION: 1. Stable left anterior temporal arachnoid cyst 2. Stable bitemporal encephalomalacia 3. No evidence of acute or subacute infarct 4. No evidence of pathologic enhancement 5. Giant cisterna magna Electronically signed by: Palomo Jhaveri M.D. 08/30/2016 12:00 PM Dictated Date/Time: 08/30/2016 11:55 AM
== END | disposition home or self-care (01) ==
LOC: C.MRI 10:26
PROVIDERS: ATTEND Psychiatry & Neurology Neurology
DX: R41.3 Other amnesia (principal); I67.82 Cerebral ischemia

== ENCOUNTER → 2016-10-23 | Outpatient (CLI) | payer BC | END | disposition home or self-care (01) | LOC: C.MAMM 15:19 | PROVIDERS: ATTEND Internal Medicine | DX: S72.009A Fracture of unspecified part of neck of unspecified femur, initial encounter for closed fracture (principal); X58.XXXA Exposure to other specified factors, initial encounter; M85.852 Other specified disorders of bone density and structure, left thigh ==

== ENCOUNTER → 2016-11-10 | Outpatient (CLI) | payer BC ==
[2016-11-10 10:02] LABS: BASO % 0.4 %; BASO ABS # 0.02 K/uL (0-0.2); COMPLETE YES; EOS % 2.1 %; HEMATOCRIT 37.4 % (42-52); IG% 0.4 %; LYMPH % 19.3 %; LYMPH ABS # 0.93 K/uL (1.2-3.4); MEAN CORPUSCULAR HEMOGLOBIN 30.7 pg (25-34); MEAN CORPUSCULAR HGB CONC 33.7 g/dl (32-36); MEAN PLATELET VOLUME 9.8 fL (7.4-10.4); NEUT % 65.8 %; PLATELET COUNT 177 K/uL (130-400); RED BLOOD COUNT 4.11 M/uL (4.7-6.1); WHITE BLOOD COUNT 4.83 K/uL (4.8-10.8)
== END | disposition home or self-care (01) ==
LOC: C.LABFOXAC 09:25
PROVIDERS: ATTEND Internal Medicine
DX: M25.551 Pain in right hip (principal)

== ENCOUNTER → 2016-11-22 | Outpatient (CLI) | payer BC ==
[2016-11-22 10:19] LABS: MEAN CORPUSCULAR HEMOGLOBIN 30.4 pg (25-34); MEAN CORPUSCULAR HGB CONC 33.1 g/dl (32-36); MEAN PLATELET VOLUME 10.1 fL (7.4-10.4); PLATELET COUNT 183 K/uL (130-400); RED BLOOD COUNT 4.24 M/uL (4.7-6.1); WHITE BLOOD COUNT 7.82 K/uL (4.8-10.8)
[2016-11-22 10:26] LABS: ALT/SGPT 16 U/L (12-78); AST/SGOT 7 U/L (15-37); BLOOD UREA NITROGEN 25 mg/dl (7-18); BUN/CREATININE RATIO 20.8 (10-20); CALCIUM 9.1 mg/dl (8.5-10.1); CARBON DIOXIDE 28 mmol/L (21-32); CHLORIDE 109 mmol/L (98-107); GLUCOSE 91 mg/dl (70-99); POTASSIUM 4.4 mmol/L (3.5-5.1); SODIUM 141 mmol/L (136-145)
[2016-11-22 10:29] LABS: ALB/GLOB RATIO 1.3 (0.9-2); ALKALINE PHOSPHATASE 126 U/L (45-117)
--- NOTE | 2016-12-05 11:55 | CODING QUERY MEDICAL NECESSITY ---
SUPPORTING DIAGNOSIS NEEDED Dr. Porter, A supporting diagnosis is required for the test/procedure performed on this patient in order for us to be reimbursed by the patient's insurance. Please provide a supporting diagnosis for the following test/procedure listed below next to the test name along with your signature. *If there is no additional diagnosis for this patient that would support the following test/procedure please document that below next to the test/procedure. Test(s)/Procedure(s) that require a supporting diagnosis: * ([id number]) VITAMIN D ASSAY DIAGNOSIS: * ([id number]) B12 VITAMIN LEVEL DIAGNOSIS: DATE OF SERVICE: 11/22/16 Provider Signature: Date: Thank you Skip See [facility] Information Management Once completed, please kindly fax back to [phone] For questions please call [phone]
== END ==
LOC: C.LABFOXAC 09:30
PROVIDERS: ATTEND Internal Medicine
DX: R53.81 Other malaise (principal); R53.83 Other fatigue; E55.9 Vitamin D deficiency, unspecified; E53.8 Deficiency of other specified B group vitamins

== ENCOUNTER → 2017-04-18 | Outpatient (CLI) | payer BC ==
[2017-04-18 12:07] LABS: HEMATOCRIT 42.2 % (42-52); HEMOGLOBIN 14.1 g/dL (14.0-18.0); MEAN CELL VOLUME 95.5 fL (80-100); MEAN CORPUSCULAR HEMOGLOBIN 31.9 pg (25-34); MEAN CORPUSCULAR HGB CONC 33.4 g/dl (32-36); MEAN PLATELET VOLUME 10.4 fL (7.4-10.4); PLATELET COUNT 141 K/uL (130-400); RED CELL DISTRIBUTION WIDTH CV 13.4 % (11.5-14.5); RED CELL DISTRIBUTION WIDTH SD 46.7 fL (36.4-46.3)
[2017-04-18 12:39] LABS: ALBUMIN 3.7 gm/dl (3.4-5.0); ALT/SGPT 16 U/L (12-78); BLOOD UREA NITROGEN 22 mg/dl (7-18); CALCIUM 9.2 mg/dl (8.5-10.1); CARBON DIOXIDE 28 mmol/L (21-32); CHOLESTEROL 117 mg/dl (0-200); CREATININE 1.02 mg/dl (0.60-1.40); GLUCOSE 80 mg/dl (70-99); POTASSIUM 4.1 mmol/L (3.5-5.1); SODIUM 140 mmol/L (136-145)
[2017-04-18 12:49] LABS: ALKALINE PHOSPHATASE 102 U/L (45-117); AST/SGOT 13 U/L (15-37); LDL CHOLESTEROL CALCULATED 63 mg/dl; TOTAL PROTEIN 6.5 gm/dl (6.4-8.2)
== END | disposition home or self-care (01) ==
LOC: C.LAB1850 11:00
PROVIDERS: ATTEND Internal Medicine
DX: C67.9 Malignant neoplasm of bladder, unspecified (principal); E53.8 Deficiency of other specified B group vitamins; E55.9 Vitamin D deficiency, unspecified; D64.9 Anemia, unspecified; R26.0 Ataxic gait; F01.50 Vascular dementia, unspecified severity, without behavioral disturbance, psychotic disturbance, mood disturbance, and anxiety

== ENCOUNTER → 2017-08-02 | Outpatient (CLI) | payer BC | END | disposition home or self-care (01) | LOC: C.LAB 18:17 | PROVIDERS: ATTEND Internal Medicine | DX: E55.9 Vitamin D deficiency, unspecified (principal) ==